=== PATIENT | male | born 1935 | race Caucasian/White ===

== ENCOUNTER 2018-12-14 13:01 | Inpatient (IN) ==
--- NOTE | 2018-12-14 13:12 | Emergency Department Note ---
Disposition Clinical Impression: SBO (small bowel obstruction) Acute renal failure Qualifiers: Acute renal failure type: unspecified Qualified Code(s): N17.9 - Acute kidney failure, unspecified Disposition: Admitted As Inpatient Condition: Good Referrals: NONE,PCP [Primary Care Provider] - Forms: ED Satisfaction Letter, Work/School Release Time of Disposition: 17:37 Abdominal Pain HPI - General Chief Complaint: ED Abdominal Pain Stated Complaint: abd pain, diarrhea Time Seen by Provider: 12/14/18 13:11 Source: patient Mode of arrival: ambulatory Limitations: no limitations Nursing Notes Reviewed: Yes Vital Signs Reviewed: Yes - History of Present Illness HPI Narrative: Patient is an 82-year-old male with past history of bowel resection 2 secondary to obstruction, previous history of diverticulitis, multiple bowel obstructions in 2018. Presenting today due to nausea, vomiting 2, diarrhea 3 days. He states that he started having generalized abdominal distention 3 days ago. He also started having liquid stools 3 days ago. Denies any blood in his stool. He has had 2 episodes of vomiting, once yesterday and once this morning on the nonbloody and nonbilious. He ascribes his abdominal discomfort as a distention type feeling. Denies any dysuria, hematuria, any other fevers, chest pain, shortness of breath. He states that this feels very similar to previous obstructions in the past. He states that he was in the hospital in June 2018, July 2018, August 2018 due to obstructions. He states that he usually requires an NG tube and bowel rest until resolution. He currently rates his abdominal pain is 7 and 10. He says that he does not want any pain medication because that usually uses his GI system down and he would rather" deal with the pain." Denies any current nausea. States his last normal bowel movement was 4 days ago. He was able to hold down a small amount of food today. Pain Scale: 7 - Related Data Allergies Allergy/AdvReac Type Severity Reaction Status Date / Time levofloxacin AdvReac Hives Verified 12/14/18 13:09 All systems ED: reviewed and negative except as stated. Constitutional: Denies: fever Cardiovascular: Denies: chest pain Respiratory: Denies: cough, dyspnea Gastrointestinal: Reports: abdominal pain, nausea, vomiting, diarrhea. Denies: constipation, hematemesis, melena, hematochezia Genitourinary: Denies: urgency, dysuria Neurological: Denies: weakness, numbness, paresthesias Abdominal Pain PMH - Past Medical History Medical history: Reports: hypertension, other Psychiatric history: Reports: no psych history - Social History Smoking status: Never smoker Alcohol use: Reports: none Drug use: Reports: none Physical Exam - General Limitations: no limitations General appearance: alert, in no apparent distress - Head Head exam: atraumatic, normocephalic, normal inspection - Eye Eye exam: Present: normal appearance, PERRL, EOMI - ENT ENT exam: normal exam, normal oropharynx, mucous membranes moist - Neck Neck exam: Present: normal inspection, full ROM, trachea midline - Chest Chest inspection: Present: normal inspection, symmetric chest wall rise - Respiratory Respiratory exam: Present: normal lung sounds bilaterally - Cardiovascular Cardiovascular exam: Present: regular rate, normal rhythm, normal heart sounds - Abdominal Exam Abdominal exam: Present: soft, tenderness (Generalized abdominal tenderness - mild to moderate), distention (Generalized abdominal distention), scar (Midline surgical scar superior and lateral to the umbilicus.). Absent: guarding, Mueller's sign, tenderness at McBurney's Point - Extremities Exam Extremities exam: Present: normal inspection, full ROM. Absent: tenderness, pedal edema - Neurological Exam Neurological exam: Present: alert, oriented X3 - Psychiatric Psychiatric exam: Present: normal affect, normal mood - Skin Skin exam: Present: warm, dry, intact, normal color Course Course Narrative: Due to extensive history of bowel obstruction and history of resection of the bowel, we will proceed with CT abdomen and pelvis. We will also obtain basic blood work, lactic acid, LFTs, lipase. We will give the patient normal saline bolus. Patient has declined any pain or nausea medication at this time. 17:35 CT abdomen and pelvis shows small bowel structuring with the right lower quadrant transition point. I talked with surgery on-call, Dr. Prasad, who has requested NG tube placement, nothing by mouth, fluids. They will act as a consult to the case. Patient also has evidence of new onset acute renal failure. Potassium is within normal limits. Patient denies that he has ever had a history of chronic kidney disease in the past. Consult to nephrology has also been placed. Patient was accepted by hospitalist. Patient continues to refuse any nausea or pain medication at this time. Abdomen/Pelvis CT 12/14/18 13:18 IMPRESSION: Evidence of small bowel obstruction, with a zone of transition in the right lower quadrant. Debris within the left lower lobe airways. That could represent mucous plugging in the setting of bronchitis, but aspiration should also be considered, especially given the gastric distention. D/ / Terrence Redman MD / Terrence Redman MD Interpreting Provider: Terrence Redman MD Vital Signs Temperature 97.6 F 12/14/18 13:04 Pulse Rate 91 12/14/18 13:04 Respiratory Rate 14 12/14/18 13:04 Blood Pressure 97/62 12/14/18 13:04 O2 Sat by Pulse Oximetry 97 12/14/18 13:04 Temperature 97.6 F 12/14/18 13:04 Pulse Rate 92 12/14/18 16:58 Respiratory Rate 16 12/14/18 16:58 Blood Pressure 114/58 12/14/18 16:58 O2 Sat by Pulse Oximetry 94 12/14/18 16:58 Oxygen Delivery Oxygen Delivery Room Air Abdominal Pain - MDM Narrative Medical decision making narrative: Due to extensive history of bowel obstruction and history of resection of the bowel, we will proceed with CT abdomen and pelvis. We will also obtain basic blood work, lactic acid, LFTs, lipase. We will give the patient normal saline bolus. Patient has declined any pain or nausea medication at this time. 17:35 CT abdomen and pelvis shows small bowel structuring with the right lower quadrant transition point. I talked with surgery on-call, Dr. Prasad, who has requested NG tube placement, nothing by mouth, fluids. They will act as a consult to the case. Patient also has evidence of new onset acute renal failure. Potassium is within normal limits. Patient denies that he has ever had a history of chronic kidney disease in the past. Consult to nephrology has also been placed. Patient was accepted by hospitalist. Patient continues to refuse any nausea or pain medication at this time. - Medical Records Medical records reviewed: Yes I reviewed the patient's medical records. - Lab Data Lab results reviewed: Yes I reviewed the patient's lab results. Result diagrams: 12/14/18 13:35 12/14/18 15:00 Lab Results 12/14/18 12/14/18 12/14/18 Range/Units 13:28 13:35 13:35 WBC 11.8 H (4.3-11.1) K/mcL RBC 4.76 (4.19-5.50) M/mcL Hgb 14.6 (12.9-16.9) g/dL Hct 42.0 (37.5-50.1) % MCV 88.2 (83.0-100.0) fL MCH 30.7 (28.0-33.3) pg MCHC 34.8 (31.6-35.5) g/dL RDW 14.6 H (11.5-14.5) % Plt Count 332 (140-400) K/mcL MPV 9.7 (9.4-12.4) fL Immature Gran % 0.3 (0-4) % Seg Neutrophils % 79.9 % Lymphocytes % 11.7 % Monocytes % 6.5 % Eosinophils % 1.3 % Basophils % 0.3 % Neutrophils # 9.4 H (1.6-8.9) K/mcL Lymphocytes # 1.4 (0.6-4.6) K/mcL Monocytes # 0.8 (0.0-1.3) K/mcL Eosinophils # 0.2 (0.0-0.6) K/mcL Basophils # 0.0 (0.0-0.2) K/mcL Sodium 130 L (136-145) mEq/L Potassium 3.5 (3.5-5.1) mEq/L Chloride 95 L (98-107) mEq/L Carbon Dioxide 16 L (23-29) mEq/L BUN 56 H (8-23) mg/dL Creatinine 6.25 H (0.70-1.30) mg/dL Est GFR ( Amer) 10 L (> 60) Est GFR (Non-Af Amer) 9 L (> 60) BUN/Creatinine Ratio 9 (6-26) Glucose 108 H (70-105) mg/dL Calculated Osmolality 286 (280-300) Lactic Acid (0.5-2.2) mmol/L Calcium 10.5 H (8.6-10.3) mg/dL Total Bilirubin 0.7 (0.3-1.0) mg/dL Direct Bilirubin 0.2 (0.0-0.2) mg/dL Indirect Bilirubin 0.5 (0.0-1.2) mg/dL AST 17 (13-39) Units/L ALT 16 (7-52) Units/L Alkaline Phosphatase 51 (34-104) Units/L Serum Total Protein 8.7 (6.4-8.9) g/dL Albumin 4.9 (3.5-5.7) g/dL Globulin 3.8 H (2.4-3.5) g/dL Albumin/Globulin Ratio 1.3 (1.1-2.2) Lipase 51 (11-82) Units/L Urine Color Red A (Yellow) Urine Clarity Turbid A (Clear) Urine pH 5.0 (5.0-8.0) pH Units Ur Specific [place] 1.029 H (1.010-1.025) Urine Protein 30 H (Neg-Trace) mg/dL Urine Glucose (UA) Normal (Normal) mg/dL Urine Ketones Trace H (Negative) mg/dL Urine Blood Negative (Negative) Urine Nitrite Negative (Negative) Urine Bilirubin Large H (Negative) Urine Urobilinogen Normal (Normal) mg/dL Ur Leukocyte Esterase Small H (Negative) Urine Microscopic RBC 30-50 H (0-3) per hpf Urine Microscopic WBC 15-30 H (0-3) per hpf Ur Squamous Epith Cells Many H (None-Few) per lpf Urine Bacteria None Seen (None-Few) per hpf Hyaline Casts Few (None-Few) per lpf Ur Culture Indicated? NO. A (NO) 12/14/18 12/14/18 Range/Units 13:35 15:00 WBC (4.3-11.1) K/mcL RBC (4.19-5.50) M/mcL Hgb (12.9-16.9) g/dL Hct (37.5-50.1) % MCV (83.0-100.0) fL MCH (28.0-33.3) pg MCHC (31.6-35.5) g/dL RDW (11.5-14.5) % Plt Count (140-400) K/mcL MPV (9.4-12.4) fL Immature Gran % (0-4) % Seg Neutrophils % % Lymphocytes % % Monocytes % % Eosinophils % % Basophils % % Neutrophils # (1.6-8.9) K/mcL Lymphocytes # (0.6-4.6) K/mcL Monocytes # (0.0-1.3) K/mcL Eosinophils # (0.0-0.6) K/mcL Basophils # (0.0-0.2) K/mcL Sodium 133 L (136-145) mEq/L Potassium 3.7 (3.5-5.1) mEq/L Chloride 99 (98-107) mEq/L Carbon Dioxide 18 L (23-29) mEq/L BUN 58 H (8-23) mg/dL Creatinine 5.93 H (0.70-1.30) mg/dL Est GFR ( Amer) 11 L (> 60) Est GFR (Non-Af Amer) 9 L (> 60) BUN/Creatinine Ratio 10 (6-26) Glucose 103 (70-105) mg/dL Calculated Osmolality 292 (280-300) Lactic Acid 1.4 (0.5-2.2) mmol/L Calcium 9.7 (8.6-10.3) mg/dL Total Bilirubin (0.3-1.0) mg/dL Direct Bilirubin (0.0-0.2) mg/dL Indirect Bilirubin (0.0-1.2) mg/dL AST (13-39) Units/L ALT (7-52) Units/L Alkaline Phosphatase (34-104) Units/L Serum Total Protein (6.4-8.9) g/dL Albumin (3.5-5.7) g/dL Globulin (2.4-3.5) g/dL Albumin/Globulin Ratio (1.1-2.2) Lipase (11-82) Units/L Urine Color (Yellow) Urine Clarity (Clear) Urine pH (5.0-8.0) pH Units Ur Specific [place] (1.010-1.025) Urine Protein (Neg-Trace) mg/dL Urine Glucose (UA) (Normal) mg/dL Urine Ketones (Negative) mg/dL Urine Blood (Negative) Urine Nitrite (Negative) Urine Bilirubin (Negative) Urine Urobilinogen (Normal) mg/dL Ur Leukocyte Esterase (Negative) Urine Microscopic RBC (0-3) per hpf Urine Microscopic WBC (0-3) per hpf Ur Squamous Epith Cells (None-Few) per lpf Urine Bacteria (None-Few) per hpf Hyaline Casts (None-Few) per lpf Ur Culture Indicated? (NO) - Radiology Data Radiology results reviewed: Yes I reviewed the patient's radiology results. Abdomen/Pelvis CT 12/14/18 13:18 IMPRESSION: Evidence of small bowel obstruction, with a zone of transition in the right lower quadrant. Debris within the left lower lobe airways. That could represent mucous plugging in the setting of bronchitis, but aspiration should also be considered, especially given the gastric distention. D/ / Terrence Redman MD / Terrence Redman MD Interpreting Provider: Terrence Redman MD Mariam - Mariam Situation: Demographics, MOA Background: Presenting Complaint, Relevant PMH, Meds, & Allergies Assessment: Vital Signs, Course and respsone to treatment, Exam Concerns, Patient/Family Expectation, Pertinant Lab Results, Outstanding Labs Recommendation: Barrier(s) to disposition, Recommendation based on pending studies, treatments, or consults S.Katherine.Jeanette Report Given to: Dr. Miguel Becerra Repor Time: 17:35 Attestation Statement - Attestation Attestation: I, Eros Wetzel DO, examined this patient [id number] and my medical decision-making was reviewed with Dr. Best Heredia, Resident Physician. I agree with the documented findings, disposition and treatment plan as described except to the extent set forth below. Please see my progress notes for details.
[2018-12-14] MEDS ORDERED: 0.9 % Sodium Chloride 1,000 ML IVC ONE (13:21)
[2018-12-14 13:42] LABS: Bilirubin,Urine Large (Negative); Blood,Urine Negative (Negative); Clarity,Urine Turbid (Clear); Color,Urine Red (Yellow); Glucose,Urine (UA) Normal (Normal); Ketones,Urine Trace mg/dL (Negative); Leukocyte Esterase,Urine Small (Negative); Nitrite,Urine Negative (Negative); Protein,Urine 30 mg/dL (Neg-Trace); Specific Gravity,Urine 1.029 (1.010-1.025); Urobilinogen,Urine Normal (Normal)
--- NOTE | 2018-12-14 13:44 | Emergency Department Note ---
Disposition Clinical Impression: SBO (small bowel obstruction) Acute renal failure Qualifiers: Acute renal failure type: unspecified Qualified Code(s): N17.9 - Acute kidney failure, unspecified Disposition: Admitted As Inpatient Condition: Fair Referrals: NONE,PCP [Primary Care Provider] - Forms: ED Satisfaction Letter, Work/School Release Time of Disposition: 17:42 General Adult HPI - General Chief complaint: ED Abdominal Pain Stated complaint: abd pain, diarrhea Time Seen by Provider: 12/14/18 13:11 Source: patient Mode of arrival: ambulatory Limitations: no limitations - History of Present Illness Pain Scale: 7 - Related Data Allergies Allergy/AdvReac Type Severity Reaction Status Date / Time levofloxacin AdvReac Hives Verified 12/14/18 13:09 Constitutional: Denies: fever Cardiovascular: Denies: chest pain Respiratory: Denies: cough, dyspnea Gastrointestinal: Reports: abdominal pain, nausea, vomiting, diarrhea. Denies: constipation, hematemesis, melena, hematochezia Genitourinary: Denies: urgency, dysuria Neurological: Denies: weakness, numbness, paresthesias Past Medical History - Past Medical History Medical history: Reports: hypertension, other Psychiatric history: Reports: no psych history - Social History Smoking Status: Never smoker Smokeless Tobacco Status: No Alcohol use: Reports: none Drug use: Reports: none Physical Exam - General Limitations: no limitations General appearance: alert, in no apparent distress Course Vital Signs Temperature 97.6 F 12/14/18 13:04 Pulse Rate 91 12/14/18 13:04 Respiratory Rate 14 12/14/18 13:04 Blood Pressure 97/62 12/14/18 13:04 O2 Sat by Pulse Oximetry 97 12/14/18 13:04 Temperature 97.6 F 12/14/18 13:04 Pulse Rate 92 12/14/18 16:58 Respiratory Rate 16 12/14/18 16:58 Blood Pressure 114/58 12/14/18 16:58 O2 Sat by Pulse Oximetry 94 12/14/18 16:58 Oxygen Delivery Oxygen Delivery Room Air Medical Decision Making - Lab Data Result diagrams: 12/14/18 13:35 12/14/18 15:00 Lab Results 12/14/18 12/14/18 12/14/18 Range/Units 13:28 13:35 13:35 WBC 11.8 H (4.3-11.1) K/mcL RBC 4.76 (4.19-5.50) M/mcL Hgb 14.6 (12.9-16.9) g/dL Hct 42.0 (37.5-50.1) % MCV 88.2 (83.0-100.0) fL MCH 30.7 (28.0-33.3) pg MCHC 34.8 (31.6-35.5) g/dL RDW 14.6 H (11.5-14.5) % Plt Count 332 (140-400) K/mcL MPV 9.7 (9.4-12.4) fL Immature Gran % 0.3 (0-4) % Seg Neutrophils % 79.9 % Lymphocytes % 11.7 % Monocytes % 6.5 % Eosinophils % 1.3 % Basophils % 0.3 % Neutrophils # 9.4 H (1.6-8.9) K/mcL Lymphocytes # 1.4 (0.6-4.6) K/mcL Monocytes # 0.8 (0.0-1.3) K/mcL Eosinophils # 0.2 (0.0-0.6) K/mcL Basophils # 0.0 (0.0-0.2) K/mcL Sodium 130 L (136-145) mEq/L Potassium 3.5 (3.5-5.1) mEq/L Chloride 95 L (98-107) mEq/L Carbon Dioxide 16 L (23-29) mEq/L BUN 56 H (8-23) mg/dL Creatinine 6.25 H (0.70-1.30) mg/dL Est GFR ( Amer) 10 L (> 60) Est GFR (Non-Af Amer) 9 L (> 60) BUN/Creatinine Ratio 9 (6-26) Glucose 108 H (70-105) mg/dL Calculated Osmolality 286 (280-300) Lactic Acid (0.5-2.2) mmol/L Calcium 10.5 H (8.6-10.3) mg/dL Total Bilirubin 0.7 (0.3-1.0) mg/dL Direct Bilirubin 0.2 (0.0-0.2) mg/dL Indirect Bilirubin 0.5 (0.0-1.2) mg/dL AST 17 (13-39) Units/L ALT 16 (7-52) Units/L Alkaline Phosphatase 51 (34-104) Units/L Serum Total Protein 8.7 (6.4-8.9) g/dL Albumin 4.9 (3.5-5.7) g/dL Globulin 3.8 H (2.4-3.5) g/dL Albumin/Globulin Ratio 1.3 (1.1-2.2) Lipase 51 (11-82) Units/L Urine Color Red A (Yellow) Urine Clarity Turbid A (Clear) Urine pH 5.0 (5.0-8.0) pH Units Ur Specific [place] 1.029 H (1.010-1.025) Urine Protein 30 H (Neg-Trace) mg/dL Urine Glucose (UA) Normal (Normal) mg/dL Urine Ketones Trace H (Negative) mg/dL Urine Blood Negative (Negative) Urine Nitrite Negative (Negative) Urine Bilirubin Large H (Negative) Urine Urobilinogen Normal (Normal) mg/dL Ur Leukocyte Esterase Small H (Negative) Urine Microscopic RBC 30-50 H (0-3) per hpf Urine Microscopic WBC 15-30 H (0-3) per hpf Ur Squamous Epith Cells Many H (None-Few) per lpf Urine Bacteria None Seen (None-Few) per hpf Hyaline Casts Few (None-Few) per lpf Ur Culture Indicated? NO. A (NO) 12/14/18 12/14/18 Range/Units 13:35 15:00 WBC (4.3-11.1) K/mcL RBC (4.19-5.50) M/mcL Hgb (12.9-16.9) g/dL Hct (37.5-50.1) % MCV (83.0-100.0) fL MCH (28.0-33.3) pg MCHC (31.6-35.5) g/dL RDW (11.5-14.5) % Plt Count (140-400) K/mcL MPV (9.4-12.4) fL Immature Gran % (0-4) % Seg Neutrophils % % Lymphocytes % % Monocytes % % Eosinophils % % Basophils % % Neutrophils # (1.6-8.9) K/mcL Lymphocytes # (0.6-4.6) K/mcL Monocytes # (0.0-1.3) K/mcL Eosinophils # (0.0-0.6) K/mcL Basophils # (0.0-0.2) K/mcL Sodium 133 L (136-145) mEq/L Potassium 3.7 (3.5-5.1) mEq/L Chloride 99 (98-107) mEq/L Carbon Dioxide 18 L (23-29) mEq/L BUN 58 H (8-23) mg/dL Creatinine 5.93 H (0.70-1.30) mg/dL Est GFR ( Amer) 11 L (> 60) Est GFR (Non-Af Amer) 9 L (> 60) BUN/Creatinine Ratio 10 (6-26) Glucose 103 (70-105) mg/dL Calculated Osmolality 292 (280-300) Lactic Acid 1.4 (0.5-2.2) mmol/L Calcium 9.7 (8.6-10.3) mg/dL Total Bilirubin (0.3-1.0) mg/dL Direct Bilirubin (0.0-0.2) mg/dL Indirect Bilirubin (0.0-1.2) mg/dL AST (13-39) Units/L ALT (7-52) Units/L Alkaline Phosphatase (34-104) Units/L Serum Total Protein (6.4-8.9) g/dL Albumin (3.5-5.7) g/dL Globulin (2.4-3.5) g/dL Albumin/Globulin Ratio (1.1-2.2) Lipase (11-82) Units/L Urine Color (Yellow) Urine Clarity (Clear) Urine pH (5.0-8.0) pH Units Ur Specific [place] (1.010-1.025) Urine Protein (Neg-Trace) mg/dL Urine Glucose (UA) (Normal) mg/dL Urine Ketones (Negative) mg/dL Urine Blood (Negative) Urine Nitrite (Negative) Urine Bilirubin (Negative) Urine Urobilinogen (Normal) mg/dL Ur Leukocyte Esterase (Negative) Urine Microscopic RBC (0-3) per hpf Urine Microscopic WBC (0-3) per hpf Ur Squamous Epith Cells (None-Few) per lpf Urine Bacteria (None-Few) per hpf Hyaline Casts (None-Few) per lpf Ur Culture Indicated? (NO) Attestation Statement - Attestation Attestation: I, Eros Wetzel DO, examined this patient [id number] and my medical decision-making was reviewed with Dr. Best Heredia, Resident Physician. I agree with the documented findings, disposition and treatment plan as described except to the extent set forth below. Please see my progress notes for details. 82-year-old male presents emergency room for evaluation of abdominal discomfort and distention. Patient has a history of bowel obstruction in the past. He said it present similarly one time previously. Currently, he is denying chest pain or shortness of breath. He has had intermittent nausea with no vomiting. Has had diarrhea. He denies any constipation. He has not had any fevers or chills. Has not fallen or injured himself. He has not been ill or traveled outside the country. Vital signs otherwise stable. Patient walked around the emergency department with no distress or complaints. His physical exam is unremarkable. Lungs are clear heart is regular. Abdomen soft nondistended no guarding no rigidity no peritoneal symptoms noted this time. Denies any complaints. Extremities are normal. Patient is neurologically intact. He has no signs of conversational dyspnea or altered mentation. Patient will con trasted scan completed at this time looking for obstruction as well as screening labs. Disposition to be determined. He has required NG tube in the past secondary to decompression of the stomach. Otherwise he is in no distress resting comfortable. Patient denied any requirement of pain medication at this time. Will monitor closely until disposition is determined. See detailed documentation the physical exam, medical intervention, medical decision-making and disposition in the resident physician's note. No critical care applied to the patient's treatment course at this time. 1415 Patient's GFR and creatinine are significantly elevated. He described no specific history of renal insufficiency at this point. Labs will be redrawn to confirm that this is a correct laboratory results in the disposition to be determined. Fluids of article provided. 1545 Patient does have what appears to be acute renal insufficiency. No comparable labs are noted. Patient is been provided with 1 L of fluid will be placed on maintenance fluid 150 mL per hour. Nephrology will be consult that admission process will be established. Patient otherwise clinically stable. 1700 Patient is waiting for admission. Surgical consultation was placed secondary to CT findings are consistent with acute small bowel obstruction. Recommendation from Dr. Beaver reviewed the case and recommended a nasogastric tube being placed. This will be ordered at this time. Patient also has what appears to be acute renal insufficiency with unknown etiology. Patient was provided with fluids here in the emergency department will have consultation for nephrology placed in the inpatient setting. Hospitalist has been patient this time for medical intervention and definitive management. Patient is otherwise clinical stable and in no distress at this point. The hospitalist Dr. Rivera reviewed the case and had no other concerns at this time. Patient will be monitored here in the emergency department until the admission process is completed.
[2018-12-14 13:45] LABS: Bacteria,Urine None Seen per hpf (None-Few); Hyaline Casts,Urine Few per lpf (None-Few); RBC,Urine 30-50 per hpf (0-3); Squamous Epithelial Cell,Urine Many per lpf (None-Few); WBC,Urine 15-30 per hpf (0-3)
[2018-12-14 13:49] LABS: Basophils % 0.3 %; Eosinophils # 0.2 K/mcL (0.0-0.6); Eosinophils % 1.3 %; Hemoglobin 14.6 g/dL (12.9-16.9); Immature Granulocytes % 0.3 % (0-4); Lymphocytes # 1.4 K/mcL (0.6-4.6); Lymphocytes % 11.7 %; Mean Corpuscular HGB Conc 34.8 g/dL (31.6-35.5); Mean Corpuscular Hemoglobin 30.7 pg (28.0-33.3); Mean Corpuscular Volume 88.2 fL (83.0-100.0); Mean Platelet Volume 9.7 fL (9.4-12.4); Monocytes # 0.8 K/mcL (0.0-1.3); Monocytes % 6.5 %; Neutrophils # 9.4 K/mcL (1.6-8.9); Platelet Count 332 K/mcL (140-400); Red Blood Count 4.76 M/mcL (4.19-5.50); Red Cell Distribution Width 14.6 % (11.5-14.5); Segmented Neutrophils % 79.9 %
[2018-12-14 14:08] LABS: Albumin 4.9 g/dL (3.5-5.7); Albumin/Globulin Ratio 1.3 (1.1-2.2); Bilirubin,Direct 0.2 mg/dL (0.0-0.2); Bilirubin,Indirect 0.5 mg/dL (0.0-1.2); Bilirubin,Total 0.7 mg/dL (0.3-1.0); Calcium 10.5 mg/dL (8.6-10.3); Globulin 3.8 g/dL (2.4-3.5); Potassium 3.5 mEq/L (3.5-5.1); Total Protein 8.7 g/dL (6.4-8.9)
[2018-12-14 15:28] LABS: Calcium 9.7 mg/dL (8.6-10.3); Potassium 3.7 mEq/L (3.5-5.1)
[2018-12-14] MEDS ORDERED: Isovue-370 500 ML BOTTLE PO ONE (15:54)
[2018-12-14] MEDS ORDERED: Ondansetron ODT 4 MG TAB.RAPDIS SL PRN (18:10)
[2018-12-14] MEDS ORDERED: Naloxone 0.4 MG/ML INJ IVP PRN (18:10)
--- NOTE | 2018-12-14 18:21 | Internal Med History&Physical ---
<Gamlaiel Beach - Last Filed: 12/14/18 18:18> Date of Encounter: 12/14/18 Time of Encounter: 18:18 Internal Medicine - H&P: HPI Chief complaint: Nausea/vomiting/abdominal pain Admitted From: Emergency Dept Plans for Post Hospital Care: Home History of present illness: Mr. Chawla is a 82 year old male with past medical history of PVCs, hypertension, gout, prostate enlargement, bowel obstruction presents with chief complaint of abdominal pain/nausea/vomiting 3 days. Patient is from [place] visiting her friend. He noticed abdominal distention starting Sunday the continue worsen and he developed generalized abdominal pain. Furthermore today patient had diarrhea and vomiting multiple times. He denied having any blood in the stool or vomit. 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 Since his surgery patient has had 3 bowel obstructions in June, July and August 2018. He states these usually require NG tube and bowel rest. He has not required surgery for bowel obstruction. He reports decreased appetite, oral intake as well as decreased urine production. Past Med Surg Social Fam HX - Past Medical History Medical history: hypertension, other Additional medical history: , Gout, hypertension bowel obstruction, enlarged prostate, hypothyroidism, hyperlipidemia Psychiatric history: no psych history - Past Surgical History Additional surgical history: back sx, kidney stone removal, section of colon removed - Social History Smoking Status: Never smoker Smokeless Tobacco Status: No Alcohol use: none Drug use: none - Family History Father Hx Family Cardiac Disorders: Yes (Congestive heart failure) Internal Medicine - H&P: Meds Allopurinol [Zyloprim] 300 mg PO DAILY 12/14/18 [History] Aspirin [Lo-Dose Aspirin EC] 81 mg PO DAILY 12/14/18 [History] Esomeprazole Magnesium [Nexium] 40 mg PO BID 12/14/18 [History] Finasteride [Proscar] 5 mg PO DAILY 12/14/18 [History] Gemfibrozil [Lopid] 600 mg PO TID 12/14/18 [History] Levothyroxine [Synthroid] 88 mcg PO 0630 12/14/18 [History] Lipase/Protease/Amylase [Viokace 20,880-78,300 Units Tb] 3 each PO TIDWM 12/14/18 [History] Lisinopril [Zestril] 5 mg PO DAILY 12/14/18 [History] Metoprolol Succinate [Toprol Xl] 25 mg PO Q8H 12/14/18 [History] Tamsulosin [Flomax] 0.4 mg PO DAILY 12/14/18 [History] Allergy/AdvReac Type Severity Reaction Status Date / Time levofloxacin AdvReac Hives Verified 12/14/18 13:09 All Systems PM: A 10-system review of systems was performed and is negative for pertinent findings except as documented above in the HPI. Review of systems: Constitutional: Denies fever, chills HEENT: Denies headache, trauma, blurry vision, eye discharge, ear pain, ear discharge neck pain, sore throat, rhinorrhea. Reports sinus pressure Heart: Denies chest pain palpitations, LE edema Lungs: Denies shortness of breath reports cough Abdomen: Reports abdominal pain nausea vomiting diarrhea MSK: Denies back pain, falls, joint pain Kidney: Denies dysuria, hematuria Skin: Denies rash, ulcers Neuro: Denies numbness and tingling Psych: denies anxiety, depression - Constitutional Vitals: Temp Pulse Resp BP Pulse Ox 97.6 F 92 16 114/58 94 12/14/18 13:04 12/14/18 16:58 12/14/18 16:58 12/14/18 16:58 12/14/18 16:58 Exam: General: pleasant, without distress HEENT: Head atraumatic, normocephalic, EOMI, PERRL, absent ear discharge or trauma, Moist Mucous Membranes, uvula midline Neck: nontender to palpation, absent lymphadenopathy, Cardiovascualr: Regular rate and rhythm with no murmur, absent gallops or rubs, absent pedal edema, radial pulses 2 out of 4 Lungs: Clear to auscultation bilaterally, not in respiratory distress Abdomen: Soft diffuse tenderness, distended distant bowel sounds, absent peritoneal signs, absent guarding. Scar from previous abdominal surgery noted, intact Skin: warm and dry, absent rash, absent open wounds and nodules MSK: absent clubbing, cyanosis, joints without swelling Neuro: Cranial nerves II through XII intact, UE and LE sensation equal bilaterally, UE and LEstrength 5/5, alert oriented 3, Psych: good insight and judgment Internal Med - H&P Results - Labs CBC & Chem 7: 12/14/18 13:35 12/14/18 15:00 Labs: Short CBC 12/14/18 Range/Units 13:35 WBC 11.8 H (4.3-11.1) K/mcL Hgb 14.6 (12.9-16.9) g/dL Hct 42.0 (37.5-50.1) % Plt Count 332 (140-400) K/mcL Neutrophils # 9.4 H (1.6-8.9) K/mcL BMP 12/14/18 12/14/18 13:35 15:00 Sodium 130 L 133 L Potassium 3.5 3.7 Chloride 95 L 99 Carbon Dioxide 16 L 18 L BUN 56 H 58 H Creatinine 6.25 H 5.93 H Glucose 108 H 103 Calcium 10.5 H 9.7 Liver Function 12/14/18 Range/Units 13:35 Total Bilirubin 0.7 (0.3-1.0) mg/dL Direct Bilirubin 0.2 (0.0-0.2) mg/dL AST 17 (13-39) Units/L ALT 16 (7-52) Units/L Alkaline Phosphatase 51 (34-104) Units/L Albumin 4.9 (3.5-5.7) g/dL Urine 12/14/18 Range/Units 13:28 Urine Color Red A (Yellow) Urine Clarity Turbid A (Clear) Urine pH 5.0 (5.0-8.0) pH Units Ur Specific [place] 1.029 H (1.010-1.025) Urine Protein 30 H (Neg-Trace) mg/dL Urine Glucose (UA) Normal (Normal) mg/dL - Impressions ITS Impressions Abdomen/Pelvis CT 12/14/18 13:18 IMPRESSION: Evidence of small bowel obstruction, with a zone of transition in the right lower quadrant. Debris within the left lower lobe airways. That could represent mucous plugging in the setting of bronchitis, but aspiration should also be considered, especially given the gastric distention. D/ / Terrence Redman MD / Terrence Redman MD Interpreting Provider: Terrence Redman MD - Assessment and Plan (1) SBO (small bowel obstruction) Current Visit: Yes Status: Acute Assessment and plan: 81-year-old male presents with abdominal distention, pain, nausea, vomiting Patient is a history of small bowel obstructions CT abdomen pelvis shows small bowel obstruction with a transient zone of tra nsition in the right lower quadrant Surgery was consulted by emergency department and recommended NG tube placement. We will start patient on IV fluids, Protonix IV (2) Acute renal failure Current Visit: Yes Status: Acute Assessment and plan: Acute renal failure likely secondary to hypovolemia from nausea vomiting CT abdomen pelvis showed no renal abnormalities, urinary bladder unremarkable Patient received 1 L of normal saline in the emergency department and his serum creatinine improved from 6.25 to 5.93 We will continue IV fluids obtain urinalysis, urine sodium, urine creatinine Nephrology was consulted by emergency department Strict I's and O's Qualifiers: Acute renal failure type: unspecified Qualified Code(s): N17.9 - Acute kidney failure, unspecified (3) Gout Current Visit: Yes Status: Chronic Assessment and plan: Patient has history of gout is on allopurinol will continue once a small bowel obstruction resolves. Qualifiers: Gout site: unspecified site Gout etiology: unspecified cause Chronicity: unspecified Qualified Code(s): M10.9 - Gout, unspecified (4) Hyperlipidemia Current Visit: Yes Status: Chronic Assessment and plan: We will continue home medications once small bowel obstruction resolves Qualifiers: Hyperlipidemia type: pure hypercholesterolemia Qualified Code(s): E78.00 - Pure hypercholesterolemia, unspecified; E78.0 - Pure hypercholesterolemia (5) Hypertension Current Visit: Yes Status: Chronic Assessment and plan: Patient's blood pressure on admission is on the hypotensive side and the systolic 90s Hold home blood pressure medications. Qualifiers: Hypertension type: essential hypertension Qualified Code(s): I10 - Essential (primary) hypertension (6) Hypothyroid Current Visit: Yes Status: Chronic Assessment and plan: Patient is on 88 g of levothyroxine If patient's small bowel obstruction does not resolve the next few days we will start him on IV levothyroxine. Qualifiers: Hypothyroidism type: acquired Qualified Code(s): E03.9 - Hypothyroidism, unspecified (7) GERD (gastroesophageal reflux disease) Current Visit: Yes Status: Chronic Assessment and plan: Pantoprazole IV Qualifiers: Esophagitis presence: esophagitis presence not specified Qualified Code(s): K21.9 - Gastro-esophageal reflux disease without esophagitis (8) DVT prophylaxis Current Visit: Yes Status: Acute Assessment and plan: Heparin subcutaneous (9) Abnormal CT of the abdomen Current Visit: Yes Status: Acute Assessment and plan: Patient CT abdomen pelvis showed debris in the left lower lobe airways which could represent mucous plugging in the setting of bronchitis or aspiration. Currently patient is not short of breath or requiring supplemental oxygen and shows no signs of infection. we will obtain cxr. - Time Spent With Patient Total time spent is greater than 50% in coordination of care (as documented) at patient's floor/unit and/or counseling patient: <Michael Luevano - Last Filed: 12/14/18 18:49> Date of Encounter: 12/14/18 Internal Medicine - H&P: HPI History of present illness: Mr. Chawla is a 82 year old male All Systems PM: A 10-system review of systems was performed and is negative for pertinent findings except as documented above in the HPI. - Constitutional Vitals: Temp Pulse Resp BP Pulse Ox 97.6 F 92 16 114/58 94 12/14/18 13:04 12/14/18 16:58 12/14/18 16:58 12/14/18 16:58 12/14/18 16:58 Internal Med - H&P Results - Labs CBC & Chem 7: 12/14/18 13:35 12/14/18 15:00 Labs: Short CBC 12/14/18 Range/Units 13:35 WBC 11.8 H (4.3-11.1) K/mcL Hgb 14.6 (12.9-16.9) g/dL Hct 42.0 (37.5-50.1) % Plt Count 332 (140-400) K/mcL Neutrophils # 9.4 H (1.6-8.9) K/mcL BMP 12/14/18 12/14/18 13:35 15:00 Sodium 130 L 133 L Potassium 3.5 3.7 Chloride 95 L 99 Carbon Dioxide 16 L 18 L BUN 56 H 58 H Creatinine 6.25 H 5.93 H Glucose 108 H 103 Calcium 10.5 H 9.7 Liver Function 12/14/18 Range/Units 13:35 Total Bilirubin 0.7 (0.3-1.0) mg/dL Direct Bilirubin 0.2 (0.0-0.2) mg/dL AST 17 (13-39) Units/L ALT 16 (7-52) Units/L Alkaline Phosphatase 51 (34-104) Units/L Albumin 4.9 (3.5-5.7) g/dL Urine 12/14/18 Range/Units 13:28 Urine Color Red A (Yellow) Urine Clarity Turbid A (Clear) Urine pH 5.0 (5.0-8.0) pH Units Ur Specific [place] 1.029 H (1.010-1.025) Urine Protein 30 H (Neg-Trace) mg/dL Urine Glucose (UA) Normal (Normal) mg/dL - Impressions ITS Impressions Abdomen/Pelvis CT 12/14/18 13:18 IMPRESSION: Evidence of small bowel obstruction, with a zone of transition in the right lower quadrant. Debris within the left lower lobe airways. That could represent mucous plugging in the setting of bronchitis, but aspiration should also be considered, especially given the gastric distention. D/ / Terrence Redman MD / Terrence Redman MD Interpreting Provider: Terrence Redman MD - Time Spent With Patient Total time spent is greater than 50% in coordination of care (as documented) at patient's floor/unit and/or counseling patient: - Attending Attestation I have seen and independently assessed this patient and I agree with plan as documented above Plan Acute small bowel obstruction. NPO, IV fluids, Surgery consulted and recs appreciated Acute renal failure. Unclear baseline. IV fluids. Nephrology consult
[2018-12-14 21:48] LABS: Bilirubin,Urine Small (Negative); Blood,Urine Small (Negative); Clarity,Urine Cloudy (Clear); Color,Urine Yellow (Yellow); Glucose,Urine (UA) Normal (Normal); Ketones,Urine Negative (Negative); Leukocyte Esterase,Urine Negative (Negative); Nitrite,Urine Negative (Negative); PH,Urine 5.5 pH Units (5.0-8.0); Protein,Urine 100 mg/dL (Neg-Trace); Specific Gravity,Urine 1.019 (1.010-1.025); Urobilinogen,Urine Normal (Normal)
[2018-12-14 21:50] LABS: Bacteria,Urine None Seen per hpf (None-Few); Hyaline Casts,Urine None Seen per lpf (None-Few); Squamous Epithelial Cell,Urine Moderate per lpf (None-Few); WBC,Urine 0-3 per hpf (0-3)
[2018-12-14] MEDS: Ringers Solution, Lactated 1,000 ML IVC SCH (22:50)
[2018-12-14] MEDS: Pantoprazole 40 MG VIAL IVP SCH (23:00)
[2018-12-15 02:36] LABS: Basophils % 0.4 %; Eosinophils # 0.1 K/mcL (0.0-0.6); Eosinophils % 1.3 %; Hematocrit 35.7 % (37.5-50.1); Immature Granulocytes % 0.7 % (0-4); Lymphocytes # 1.3 K/mcL (0.6-4.6); Lymphocytes % 14.3 %; Mean Corpuscular Hemoglobin 30.8 pg (28.0-33.3); Mean Corpuscular Volume 87.9 fL (83.0-100.0); Mean Platelet Volume 9.8 fL (9.4-12.4); Monocytes # 0.8 K/mcL (0.0-1.3); Monocytes % 8.4 %; Neutrophils # 6.8 K/mcL (1.6-8.9); Platelet Count 241 K/mcL (140-400); Red Blood Count 4.06 M/mcL (4.19-5.50); Red Cell Distribution Width 14.2 % (11.5-14.5); Segmented Neutrophils % 74.9 %
[2018-12-15 02:37] LABS: Hemoglobin 12.5 g/dL (12.9-16.9)
[2018-12-15 02:56] LABS: Calcium 9.5 mg/dL (8.6-10.3); Magnesium 1.4 mg/dL (1.6-2.6); Potassium 3.2 mEq/L (3.5-5.1)
[2018-12-15] MEDS: *HR* Heparin 5,000 UNIT/ML VIAL SQ SCH ×2 (06:37→17:22)
--- NOTE | 2018-12-15 08:07 | Internal Med Progress Note ---
<Gamaliel Beach - Last Filed: 12/15/18 13:54> Hospitalist Progress Note - Encounter Date of Encounter: 12/15/18 Time of Encounter: 10:00 - Subjective Interval History: no acute events overnight. Patient had multiple bowel movements overnight including diarrhea. This morning his surgery clamped NG tube and patient is on clear liquid diet. - Exam Vitals: Temp Pulse Resp BP Pulse Ox 99.3 F 73 16 97/60 97 12/15/18 04:38 12/15/18 04:38 12/15/18 04:38 12/15/18 04:38 12/15/18 04:38 Exam: General: pleasant, without distress Cardiovascualr: Regular rate and rhythm with no murmur, absent gallops or rubs, absent pedal edema, radial pulses 2 out of 4 Lungs: Clear to auscultation bilaterally, not in respiratory distress Abdomen: Soft diffuse tenderness decreased from yesterday, distended but less than yesterday, distant bowel sounds, absent peritoneal signs, absent guarding. Scar from previous abdominal surgery noted, intact Skin: warm and dry, absent rash, absent open wounds and nodules MSK: absent clubbing, cyanosis, joints without swelling Neuro: Cranial nerves II through XII intact, UE and LE sensation equal jethro aterally, UE and LEstrength 5/5, alert oriented 3, Psych: good insight and judgment - Assessment and Plan (1) SBO (small bowel obstruction) Current Visit: Yes Status: Acute Assessment and Plan: Appreciate surgery recommendations. Patient's NG tube clamping he is unclear liquids as he had multiple bowel movements overnight. Continue IV fluids, Zofran for nausea. Replacing potassium, magnesium. (2) Acute renal failure Current Visit: Yes Status: Acute Assessment and Plan: Prerenal Improving with IV fluids. Appreciate nephrology recommendations (3) Gout Current Visit: Yes Status: Chronic Assessment and Plan: We will restart home medications once NG tube is out. (4) Hyperlipidemia Current Visit: Yes Status: Chronic Assessment and Plan: we will continue home medications once small bowel obstruction resolves (5) Hypertension Current Visit: Yes Status: Chronic Assessment and Plan: Patient's blood pressure on admission is on the hypotensive side and the systolic 90s Hold home blood pressure medications. (6) Hypothyroid Current Visit: Yes Status: Chronic Assessment and Plan: Patient is on 88 g of levothyroxine If patient's small bowel obstruction does not resolve the next few days we will start him on IV levothyroxine. (7) GERD (gastroesophageal reflux disease) Current Visit: Yes Status: Chronic Assessment and Plan: Protonix IV (8) DVT prophylaxis Current Visit: Yes Status: Acute Assessment and Plan: Heparin subcutaneous (9) Abnormal CT of the abdomen Current Visit: Yes Status: Acute Assessment and Plan: Chest x-ray within normal limits. Patient surface status is normal. Not requiring oxygenation and does not have cough or sputum production. - Time Spent with Patient Total time spent is greater than 50% in coordination of care (as documented) at patient's floor/unit and/or counseling patient: Internal Medicine: Result - Labs CBC & Chem 7: 12/15/18 02:19 12/15/18 02:19 Labs: Short CBC 12/14/18 12/15/18 Range/Units 13:35 02:19 WBC 11.8 H 9.0 (4.3-11.1) K/mcL Hgb 14.6 12.5 L D (12.9-16.9) g/dL Hct 42.0 35.7 L (37.5-50.1) % Plt Count 332 241 (140-400) K/mcL Neutrophils # 9.4 H 6.8 (1.6-8.9) K/mcL BMP 12/14/18 12/14/18 12/15/18 13:35 15:00 02:19 Sodium 130 L 133 L 133 L Potassium 3.5 3.7 3.2 L Chloride 95 L 99 101 Carbon Dioxide 16 L 18 L 15 L BUN 56 H 58 H 62 H Creatinine 6.25 H 5.93 H 3.82 H Glucose 108 H 103 88 Calcium 10.5 H 9.7 9.5 Liver Function 12/14/18 Range/Units 13:35 Total Bilirubin 0.7 (0.3-1.0) mg/dL Direct Bilirubin 0.2 (0.0-0.2) mg/dL AST 17 (13-39) Units/L ALT 16 (7-52) Units/L Alkaline Phosphatase 51 (34-104) Units/L Albumin 4.9 (3.5-5.7) g/dL Urine 12/14/18 12/14/18 Range/Units 13:28 21:27 Urine Color Red A Yellow (Yellow) Urine Clarity Turbid A Cloudy A (Clear) Urine pH 5.0 5.5 (5.0-8.0) pH Units Ur Specific [place] 1.029 H 1.019 (1.010-1.025) Urine Protein 30 H 100 H (Neg-Trace) mg/dL Urine Glucose (UA) Normal Normal (Normal) mg/dL - Impressions Impressions Abdomen/Pelvis CT 12/14/18 13:18 IMPRESSION: Evidence of small bowel obstruction, with a zone of transition in the right lower quadrant. Debris within the left lower lobe airways. That could represent mucous plugging in the setting of bronchitis, but aspiration should also be considered, especially given the gastric distention. D/ / Terrence Redman MD / Terrence Redman MD Interpreting Provider: Terrence Redman MD Chest X-Ray 12/14/18 18:32 IMPRESSION: No acute findings D/ / Jesica Strickland MD / Jesica Strickland MD Interpreting Provider: Jesica Strickland MD Consult Discharge Plan - Plan Referrals: NONE,PCP [Primary Care Provider] - <Michael Luevano - Last Filed: 12/15/18 14:58> Hospitalist Progress Note - Encounter Date of Encounter: 12/15/18 - Exam Vitals: Temp Pulse Resp BP Pulse Ox 98.2 F 98 16 105/62 95 12/15/18 10:38 12/15/18 10:38 12/15/18 10:38 12/15/18 10:38 12/15/18 10:38 - Time Spent with Patient Total time spent is greater than 50% in coordination of care (as documented) at patient's floor/unit and/or counseling patient: Internal Medicine: Result - Labs CBC & Chem 7: 12/15/18 02:19 12/15/18 02:19 Labs: Short CBC 12/15/18 Range/Units 02:19 WBC 9.0 (4.3-11.1) K/mcL Hgb 12.5 L D (12.9-16.9) g/dL Hct 35.7 L (37.5-50.1) % Plt Count 241 (140-400) K/mcL Neutrophils # 6.8 (1.6-8.9) K/mcL BMP 12/14/18 12/15/18 15:00 02:19 Sodium 133 L 133 L Potassium 3.7 3.2 L Chloride 99 101 Carbon Dioxide 18 L 15 L BUN 58 H 62 H Creatinine 5.93 H 3.82 H Glucose 103 88 Calcium 9.7 9.5 Urine 12/14/18 Range/Units 21:27 Urine Color Yellow (Yellow) Urine Clarity Cloudy A (Clear) Urine pH 5.5 (5.0-8.0) pH Units Ur Specific [place] 1.019 (1.010-1.025) Urine Protein 100 H (Neg-Trace) mg/dL Urine Glucose (UA) Normal (Normal) mg/dL - Impressions Impressions Abdomen/Pelvis CT 12/14/18 13:18 IMPRESSION: Evidence of small bowel obstruction, with a zone of transition in the right lower quadrant. Debris within the left lower lobe airways. That could represent mucous plugging in the setting of bronchitis, but aspiration should also be considered, especially given the gastric distention. D/ / Terrence Redman MD / Terrence Redman MD Interpreting Provider: Terrence Redman MD Chest X-Ray 12/14/18 18:32 IMPRESSION: No acute findings D/ / Jesica Strickland MD / Jesica Strickland MD Interpreting Provider: Jesica Strickland MD - Attending Attestation I have seen and independently assessed this patient and I agree with plan as documented above Plan Acute small bowel obstruction. NPO, IV fluids, Surgery consulted and recs appreciated. Advance diet to clears today and monitor Acute renal failure. Unclear baseline. IV fluids. Nephrology consult <Gamaliel Beach - Last Filed: 12/15/18 13:54> (2) Acute renal failure Qualifiers: Acute renal failure type: unspecified Qualified Code(s): N17.9 - Acute kidney failure, unspecified (3) Gout Qualifiers: Gout site: unspecified site Gout etiology: unspecified cause Chronicity: unspecified Qualified Code(s): M10.9 - Gout, unspecified (4) Hyperlipidemia Qualifiers: Hyperlipidemia type: pure hypercholesterolemia Qualified Code(s): E78.00 - Pure hypercholesterolemia, unspecified; E78.0 - Pure hypercholesterolemia (5) Hypertension Qualifiers: Hypertension type: essential hypertension Qualified Code(s): I10 - Essential (primary) hypertension (6) Hypothyroid Qualifiers: Hypothyroidism type: acquired Qualified Code(s): E03.9 - Hypothyroidism, unspecified (7) GERD (gastroesophageal reflux disease) Qualifiers: Esophagitis presence: esophagitis presence not specified Qualified Code(s): K21.9 - Gastro-esophageal reflux disease without esophagitis
--- NOTE | 2018-12-15 08:44 | AcuteCare Surgery Consult Note ---
Date of Encounter: 12/15/18 Time of Encounter: 07:00 Assessment and Plan (1) SBO (small bowel obstruction) Current Visit: Yes Status: Acute NPO/NGT/IVF. Pt already responding well to conservative therapy for SBO. Clamp NGT and start clears. If pt tolerates clears will DC NGT and advance diet as tolerated. If nausea and/or vomiting develops then will place NGT back to LIWS and obtain gastrograffin SB series in am. Thank you for letting me participate in this patient's care. (2) Acute renal failure Current Visit: Yes Status: Acute improving with IVF Qualifiers: Acute renal failure type: unspecified Qualified Code(s): N17.9 - Acute kidney failure, unspecified (3) Hypertension Current Visit: Yes Status: Chronic hospitalist managing Qualifiers: Hypertension type: essential hypertension Qualified Code(s): I10 - Essential (primary) hypertension History of Present Illness Consult date: 12/15/18 Reason for consult: other (SBO) History of present illness: This 82 y/o male with known hx of multiple, recurrent SBO. He reports acute onset nausea and vomiting, abdominal distension and pain. He reports previous hx of surgery for bowel obstruction. Currently, pt denies any abdominal pain. NGT in place and clamped. +BM x4 overnight. +flatus Past Med Surg Social Fam HX - Past Medical History Medical history: hypertension, other Additional medical history: , Gout, hypertension bowel obstruction, enlarged pro state, hypothyroidism, hyperlipidemia Psychiatric history: no psych history - Past Surgical History Additional surgical history: back sx, kidney stone removal, section of colon removed - Social History Smoking Status: Never smoker Smokeless Tobacco Status: No Alcohol use: none Drug use: none - Family History Father Hx Family Cardiac Disorders: Yes (Congestive heart failure) Medications and Allergies Allopurinol [Zyloprim] 300 mg PO DAILY 12/14/18 [History] Aspirin [Lo-Dose Aspirin EC] 81 mg PO DAILY 12/14/18 [History] Esomeprazole Magnesium [Nexium] 40 mg PO BID 12/14/18 [History] Finasteride [Proscar] 5 mg PO DAILY 12/14/18 [History] Gemfibrozil [Lopid] 600 mg PO TID 12/14/18 [History] Levothyroxine [Synthroid] 88 mcg PO 0630 12/14/18 [History] Lipase/Protease/Amylase [Viokace 20,880-78,300 Units Tb] 3 each PO TIDWM 12/14/18 [History] Lisinopril [Zestril] 5 mg PO DAILY 12/14/18 [History] Metoprolol Succinate [Toprol Xl] 25 mg PO Q8H 12/14/18 [History] Tamsulosin [Flomax] 0.4 mg PO DAILY 12/14/18 [History] Allergy/AdvReac Type Severity Reaction Status Date / Time levofloxacin AdvReac Hives Verified 12/14/18 13:09 Review of Systems All systems PM: The remainder of the systems were reviewed and are negative - Constitutional as per HPI, no anorexia, no chills, no fatigue, no fever(s), no weight gain, no weight loss - EENT Nose, mouth and throat: dry mouth, no dysphagia, no nasal congestion, no nasal discharge, no sinus pain, no sinus pressure, no sore throat - Cardiovascular no chest pain, no diaphoresis, no dyspnea, no edema - Respiratory no cough, no dyspnea, no wheezing - Gastrointestinal abdominal pain, bloating, constipation, loose stools, nausea, vomiting, no belching, no coffee ground emesis, no diarrhea, no hematemesis - Genitourinary no difficulty urinating, no dysuria, no urinary frequency, no urinary urgency - Musculoskeletal back pain, limited range of motion, neck pain, no joint swelling - Integumentary dry skin, no pruritus, no rash, no wounds, no jaundice - Neurological weakness, no confusion, no dizziness, no focal weakness - Psychiatric no anxiety, no depression - Hematologic/Lymphatic no easy bleeding, no easy bruising General Surgery Exam Initial Vital Signs Temp Pulse Resp BP Pulse Ox 97.6 F 91 14 97/62 97 12/14/18 13:04 12/14/18 13:04 12/14/18 13:04 12/14/18 13:04 12/14/18 13:04 - General physical appearance well developed, well nourished, no distress, no pain - Eyes PERRL, normal ocular movement. negative: icteric - ENT no congestion, dry mucosa. negative: nasal discharge - Neck no masses, no lymphadectomy, no venous distension - Respiratory normal respiratory effort, clear to auscultation - Cardiovascular Cardiovascular exam: Present: RRR. Absent: murmurs - Abdomen Abdomen general surgery: Present: bowel sounds present, soft, non tender, distended. Absent: guarding, rebound - Genitourinary Present: normal penis with no external lesions - Integumentary Integumentary general surgery: Present: warm and dry - Neurologic Present: CN 2-12 grossly intact - Musculoskeletal Present: normal posture - Psychiatric Psychiatric general surgery: Present: A&Ox3, appropriate Exam Initial Vital Signs Temp Pulse Resp BP Pulse Ox 97.6 F 91 14 97/62 97 12/14/18 13:04 12/14/18 13:04 12/14/18 13:04 12/14/18 13:04 12/14/18 13:04 Results - Labs 12/15/18 02:19 12/15/18 02:19 Abnormal lab results RBC 4.06 M/mcL (4.19-5.50) L 12/15/18 02:19 Hgb 12.5 g/dL (12.9-16.9) L D 12/15/18 02:19 Hct 35.7 % (37.5-50.1) L 12/15/18 02:19 Sodium 133 mEq/L (136-145) L 12/15/18 02:19 Potassium 3.2 mEq/L (3.5-5.1) L 12/15/18 02:19 Carbon Dioxide 15 mEq/L (23-29) L 12/15/18 02:19 BUN 62 mg/dL (8-23) H 12/15/18 02:19 Creatinine 3.82 mg/dL (0.70-1.30) H 12/15/18 02:19 Est GFR ( Amer) 19 (> 60) L 12/15/18 02:19 Est GFR (Non-Af Amer) 15 (> 60) L 12/15/18 02:19 Phosphorus 5.0 mg/dL (2.7-4.5) H 12/15/18 02:19 Magnesium 1.4 mg/dL (1.6-2.6) L 12/15/18 02:19 Globulin 3.8 g/dL (2.4-3.5) H 12/14/18 13:35 Urine Clarity Cloudy (Clear) A 12/14/18 21:27 Urine Protein 100 mg/dL (Neg-Trace) H 12/14/18 21:27 Urine Blood Small (Negative) H 12/14/18 21:27 Urine Bilirubin Small (Negative) H 12/14/18 21:27 Urine Microscopic RBC 3-5 per hpf (0-3) H 12/14/18 21:27 Ur Squamous Epith Cells Moderate per lpf (None-Few) H 12/14/18 21:27 Ur Culture Indicated? NO. (NO) A 12/14/18 13:28 Diabetes panel 12/14/18 12/14/18 12/15/18 Range/Units 13:35 15:00 02:19 Sodium 130 L 133 L 133 L (136-145) mEq/L Potassium 3.5 3.7 3.2 L (3.5-5.1) mEq/L Chloride 95 L 99 101 (98-107) mEq/L Carbon Dioxide 16 L 18 L 15 L (23-29) mEq/L BUN 56 H 58 H 62 H (8-23) mg/dL Creatinine 6.25 H 5.93 H 3.82 H (0.70-1.30) mg/dL Glucose 108 H 103 88 (70-105) mg/dL Calcium 10.5 H 9.7 9.5 (8.6-10.3) mg/dL AST 17 (13-39) Units/L ALT 16 (7-52) Units/L Alkaline Phosphatase 51 (34-104) Units/L Albumin 4.9 (3.5-5.7) g/dL Calcium panel 12/14/18 12/14/18 12/15/18 Range/Units 13:35 15:00 02:19 Calcium 10.5 H 9.7 9.5 (8.6-10.3) mg/dL Phosphorus 5.0 H (2.7-4.5) mg/dL Albumin 4.9 (3.5-5.7) g/dL Pituitary panel 12/14/18 12/14/18 12/15/18 Range/Units 13:35 15:00 02:19 Sodium 130 L 133 L 133 L (136-145) mEq/L Potassium 3.5 3.7 3.2 L (3.5-5.1) mEq/L Chloride 95 L 99 101 (98-107) mEq/L Carbon Dioxide 16 L 18 L 15 L (23-29) mEq/L BUN 56 H 58 H 62 H (8-23) mg/dL Creatinine 6.25 H 5.93 H 3.82 H (0.70-1.30) mg/dL Glucose 108 H 103 88 (70-105) mg/dL Calcium 10.5 H 9.7 9.5 (8.6-10.3) mg/dL Adrenal panel 12/14/18 12/14/18 12/15/18 Range/Units 13:35 15:00 02:19 Sodium 130 L 133 L 133 L (136-145) mEq/L Potassium 3.5 3.7 3.2 L (3.5-5.1) mEq/L Chloride 95 L 99 101 (98-107) mEq/L Carbon Dioxide 16 L 18 L 15 L (23-29) mEq/L BUN 56 H 58 H 62 H (8-23) mg/dL Creatinine 6.25 H 5.93 H 3.82 H (0.70-1.30) mg/dL Glucose 108 H 103 88 (70-105) mg/dL Calcium 10.5 H 9.7 9.5 (8.6-10.3) mg/dL Total Bilirubin 0.7 (0.3-1.0) mg/dL AST 17 (13-39) Units/L ALT 16 (7-52) Units/L Alkaline Phosphatase 51 (34-104) Units/L Albumin 4.9 (3.5-5.7) g/dL All other labs normal. - Imaging CT scan - abdomen: image reviewed (+SBO with transition point) CT scan - pelvis: image reviewed Consult Discharge Plan - Plan Referrals: NONE,PCP [Primary Care Provider] -
[2018-12-15] MEDS: Pantoprazole 40 MG VIAL IVP SCH (10:17)
[2018-12-15] MEDS: Sodium Bicarbonate 150 MEQ in D5% in Water 1,000 ML IVC SCH ×2 (10:23→19:18)
[2018-12-15] MEDS: Saline Nasal Spray 44 ML BOTTLE NS PRN ×3 (11:54→17:24)
--- NOTE | 2018-12-15 12:20 | Nephrology Consult Note ---
Date of Encounter: 12/15/18 Time of Encounter: 12:00 Assessment and Plan (1) ANGELO (acute kidney injury) Current Visit: Yes Status: Acute Elevated SCr in the setting of N/V and SBO likely pre-renal Agree with aggressive volume repletion Avoid nephrotoxins if possible No acute indication for [employer] at this time since improving Will obtain US of kidney given history of BPH (2) SBO (small bowel obstruction) Current Visit: Yes Status: Acute Per surgery (3) Hypokalemia Current Visit: Yes Status: Acute Agree with repletion thus far but also needs magnseium repletion bicarb gtt also affects potassium movement intracellular which makes repletion difficult (4) Hypomagnesemia Current Visit: Yes Status: Acute repleted (5) Metabolic acidosis Current Visit: Yes Status: Acute due to ANGELO, agree with bicarb gtt for now History of Present Illness - Reason for Consult Consult date: 12/15/18 Acute Kidney Injury Requesting physician: Best Heredia - History of Present Illness 82 y o male with PMH of HTN, gout, BPH and recurrent bowel obxns admitted with abd. distension, pain with nausea and vomiting of 3 day duration. SCr initially noted at 6.25 improving to 5.93 yesterday and 3.82 today. Renal consulted placed in chart yesterday evening but never called and noted on list this am. No baseline SCr available as pt is from [place] by he denies any prior history of renal disease. He reports decerased po intake for the past several days with nausea and vomiting. No NSAIDs use. Past Med Surg Social Fam HX - Past Medical History Medical history: hypertension, other Additional medical history: , Gout, hypertension bowel obstruction, enlarged prostate, hypothyroidism, hyperlipidemia Psychiatric history: no psych history - Past Surgical History Additional surgical history: back sx, kidney stone removal, section of colon removed - Social History Smoking Status: Never smoker Smokeless Tobacco Status: No Alcohol use: none Drug use: none - Family History Father Hx Family Cardiac Disorders: Yes (Congestive heart failure) Medications and Allergies Allopurinol [Zyloprim] 300 mg PO DAILY 12/14/18 [History] Aspirin [Lo-Dose Aspirin EC] 81 mg PO DAILY 12/14/18 [History] Esomeprazole Magnesium [Nexium] 40 mg PO BID 12/14/18 [History] Finasteride [Proscar] 5 mg PO DAILY 12/14/18 [History] Gemfibrozil [Lopid] 600 mg PO TID 12/14/18 [History] Levothyroxine [Synthroid] 88 mcg PO 0630 12/14/18 [History] Lipase/Protease/Amylase [Viokace 20880-78,300 Units Tb] 3 each PO TIDWM 12/14/18 [History] Lisinopril [Zestril] 5 mg PO DAILY 12/14/18 [History] Metoprolol Succinate [Toprol Xl] 25 mg PO Q8H 12/14/18 [History] Tamsulosin [Flomax] 0.4 mg PO DAILY 12/14/18 [History] Allergy/AdvReac Type Severity Reaction Status Date / Time levofloxacin AdvReac Hives Verified 12/14/18 13:09 Review of Systems All Systems review (narrative): The rest of systems are negative Constitutional: fatigue (admits) Cardiovascular: chest pain (denies), leg edema (denies) Respiratory: dyspnea (denies) Gastrointestinal: abdominal pain (admits), diarrhea (admits), vomiting (admits) Exam - Vital Signs Vital signs: Initial Vital Signs Temp Pulse Resp BP Pulse Ox 97.6 F 91 14 97/62 97 12/14/18 13:04 12/14/18 13:04 12/14/18 13:04 12/14/18 13:04 12/14/18 13:04 Vital Signs - Last 8 Hours Temp Pulse Resp BP Pulse Ox 12/15/18 10:38 98.2 F 98 16 105/62 95 12/15/18 04:38 99.3 F 73 16 97/60 97 Intake and Output 12/14/18 12/15/18 12/15/18 23:59 07:59 15:59 Intake Total 1100 / 1100 Output Total 0 / 0 200 / 200 Balance 0 / 0 900 / 900 Intake: IV Fluids 1100 / 1100 Lactated Ringers 1,000 ML @ 100 1000 / 1000 mls/hr IVC .Q10H DANIELLE Rx#: [id number] Potassium Chloride 10 mEq/100mL 100 / 100 10 meq In 100 ml @ 100 mls/hr IVPB Q1H DANIELLE Rx#:[id number] Output: Urine 0 / 0 200 / 200 Gastric Drainage 0 / 0 0 / 0 Other: Stool Size Large Moderate Small Stool Consistency soft liquid liquid Stool Characteristics Normal for Patient Stool Color Brown Brown Brown Green # Bowel Movements 2 Weight 72.3 kg 72.2 kg Patient Weight 12/15/18 23:59 Weight 72.2 kg - General Appearance General appearance: well-developed, well-nourished (comfortable with NGT) EENT: ATNC, mucous membranes dry Neck: no JVD, supple Respiratory: clear (ant bilat) Cardiology: normal S1, normal S2 Gastrointestinal: tenderness (diffuse, mild), no guarding Integumentary: warm and dry Neurologic: no focal deficit Musculoskeletal: no deformities Psychiatric: mood/affect appropriate Results - Lab Results 12/16/18 04:12 12/16/18 14:47 Most recent lab results Calcium 9.5 mg/dL (8.6-10.3) 12/15/18 02:19 Phosphorus 5.0 mg/dL (2.7-4.5) H 12/15/18 02:19 Magnesium 1.4 mg/dL (1.6-2.6) L 12/15/18 02:19 Urine Creatinine 234 mg/dL 12/14/18 21:27 Urine Sodium 43.0 mEq/L 12/14/18 21:27 Consult Discharge Plan - Plan Referrals: NONE,PCP [Primary Care Provider] -
[2018-12-16 04:33] LABS: Hematocrit 36.5 % (37.5-50.1); Hemoglobin 12.8 g/dL (12.9-16.9); Mean Corpuscular HGB Conc 35.1 g/dL (31.6-35.5); Mean Corpuscular Hemoglobin 30.3 pg (28.0-33.3); Mean Corpuscular Volume 86.5 fL (83.0-100.0); Mean Platelet Volume 9.6 fL (9.4-12.4); Platelet Count 259 K/mcL (140-400); Red Blood Count 4.22 M/mcL (4.19-5.50); Red Cell Distribution Width 13.9 % (11.5-14.5)
[2018-12-16 04:55] LABS: Calcium 9.7 mg/dL (8.6-10.3); Magnesium 1.9 mg/dL (1.6-2.6); Potassium 2.6 mEq/L (3.5-5.1)
[2018-12-16] MEDS: *HR* Heparin 5,000 UNIT/ML VIAL SQ SCH ×2 (05:42→19:03)
[2018-12-16] MEDS: Ringers Solution, Lactated 1,000 ML IVC SCH ×2 (07:33→09:33)
--- NOTE | 2018-12-16 07:53 | Internal Med Progress Note ---
<Gamaliel Beach - Last Filed: 12/16/18 12:59> Hospitalist Progress Note - Encounter Date of Encounter: 12/16/18 Time of Encounter: 09:00 - Subjective Interval History: Patient reports that he has had poor sleep since admission and requests melatonin. Yesterday patient's NG tube was clamped and he had a clear liquid diet. However he states since he started the diet he did have some nausea. Overnight patient was started on intermittent suction and over 1 L of gastric fluid was removed. This morning his NG tube is back to suction and he is going to have a clear liquid diet as per surgery. Furthermore patient has had multiple liquid bowel movements throughout the night. - Exam Vitals: Temp Pulse Resp BP Pulse Ox 98.4 F 95 14 104/58 94 12/16/18 07:10 12/16/18 07:10 12/16/18 07:10 12/16/18 07:10 12/15/18 22:25 Exam: General: pleasant, without distress Cardiovascualr: Regular rate and rhythm with no murmur, absent gallops or rubs, absent pedal edema, radial pulses 2 out of 4 Lungs: Clear to auscultation bilaterally, not in respiratory distress Abdomen: Soft nontender, distended, distant bowel sounds, absent peritoneal signs, absent guarding. Scar from previous abdominal surgery noted, intact. NG tube Skin: warm and dry, absent rash, absent open wounds and nodules MSK: absent clubbing, cyanosis, joints without swelling Neuro: Cranial nerves II through XII intact, UE and LE sensation equal bilaterally, UE and LEstrength 5/5, alert oriented 3, Psych: good insight and judgment - Assessment and Plan (1) SBO (small bowel obstruction) Current Visit: Yes Status: Acute Assessment and Plan: Appreciate surgery recommendations We will continue IV fluids and symptomatic nausea control Patient's NG tube was clamped and he is on clear liquids. (2) Acute renal failure Current Visit: Yes Status: Acute Assessment and Plan: Patient's serum creatinine has improved to 1.55 This is secondary to prerenal etiology. BMP tomorrow morning (3) Gout Current Visit: Yes Status: Chronic Assessment and Plan: We will restart home medications once NG tube is out. (4) Hyperlipidemia Current Visit: Yes Status: Chronic Assessment and Plan: we will continue home medications once small bowel obstruction resolves (5) Hypertension Current Visit: Yes Status: Chronic Assessment and Plan: holding for now BP is controlled. (6) Hypothyroid Current Visit: Yes Status: Chronic Assessment and Plan: start IV levothyroxine (7) GERD (gastroesophageal reflux disease) Current Visit: Yes Status: Chronic Assessment and Plan: Protonix IV (8) DVT prophylaxis Current Visit: Yes Status: Acute Assessment and Plan: Heparin subcutaneous (9) Diarrhea Current Visit: Yes Status: Acute Assessment and Plan: Patient had multiple bouts of diarrhea overnight Unclear etiology Sending stool panel. (10) Hypokalemia Current Visit: Yes Status: Acute Assessment and Plan: Replacing. Repeat potassium. - Time Spent with Patient Total time spent is greater than 50% in coordination of care (as documented) at patient's floor/unit and/or counseling patient: Internal Medicine: Result - Labs CBC & Chem 7: 12/16/18 04:12 12/16/18 04:12 Labs: Short CBC 12/16/18 Range/Units 04:12 WBC 6.7 (4.3-11.1) K/mcL Hgb 12.8 L (12.9-16.9) g/dL Hct 36.5 L (37.5-50.1) % Plt Count 259 (140-400) K/mcL BMP 12/16/18 04:12 Sodium 133 L Potassium 2.6 L Chloride 94 L Carbon Dioxide 26 BUN 53 H Creatinine 1.55 H Glucose 128 H Calcium 9.7 Consult Discharge Plan - Plan Referrals: NONE,PCP [Primary Care Provider] - <Michael Luevano - Last Filed: 12/16/18 15:04> Hospitalist Progress Note - Encounter Date of Encounter: 12/16/18 - Exam Vitals: Temp Pulse Resp BP Pulse Ox 97.9 F 93 16 118/75 95 12/16/18 14:51 12/16/18 14:51 12/16/18 10:30 12/16/18 14:51 12/16/18 14:51 - Assessment and Plan (1) SBO (small bowel obstruction) Current Visit: Yes Status: Acute (2) Abnormal CT of the abdomen Current Visit: Yes Status: Acute - Time Spent with Patient Total time spent is greater than 50% in coordination of care (as documented) at patient's floor/unit and/or counseling patient: Internal Medicine: Result - Labs CBC & Chem 7: 12/16/18 04:12 12/16/18 04:12 Labs: Short CBC 12/16/18 Range/Units 04:12 WBC 6.7 (4.3-11.1) K/mcL Hgb 12.8 L (12.9-16.9) g/dL Hct 36.5 L (37.5-50.1) % Plt Count 259 (140-400) K/mcL BMP 12/16/18 04:12 Sodium 133 L Potassium 2.6 L Chloride 94 L Carbon Dioxide 26 BUN 53 H Creatinine 1.55 H Glucose 128 H Calcium 9.7 - Attending Attestation I have seen and independently assessed this patient and I agree with plan as documented above Plan Acute small bowel obstruction. NPO, IV fluids, Surgery consulted and recs appreciated. Advance diet to clears today and monitor Acute renal failure likely prerenal. IV fluids. Nephrology consult. Creatinine improving Diarrhea. Obtain stool studies <Gamaliel Beach - Last Filed: 12/16/18 12:59> (2) Acute renal failure Qualifiers: Acute renal failure type: unspecified Qualified Code(s): N17.9 - Acute kidney failure, unspecified (3) Gout Qualifiers: Gout site: unspecified site Gout etiology: unspecified cause Chronicity: unspecified Qualified Code(s): M10.9 - Gout, unspecified (4) Hyperlipidemia Qualifiers: Hyperlipidemia type: pure hypercholesterolemia Qualified Code(s): E78.00 - Pure hypercholesterolemia, unspecified; E78.0 - Pure hypercholesterolemia (5) Hypertension Qualifiers: Hypertension type: essential hypertension Qualified Code(s): I10 - Essential (primary) hypertension (6) Hypothyroid Qualifiers: Hypothyroidism type: acquired Qualified Code(s): E03.9 - Hypothyroidism, unspecified (7) GERD (gastroesophageal reflux disease) Qualifiers: Esophagitis presence: esophagitis presence not specified Qualified Code(s): K21.9 - Gastro-esophageal reflux disease without esophagitis (9) Diarrhea Qualifiers: Diarrhea type: unspecified type Qualified Code(s): R19.7 - Diarrhea, unspecified
[2018-12-16] MEDS ORDERED: Potassium Chloride Elixir 20 MEQ/15 ML UDC PO SCH (08:00)
[2018-12-16] MEDS ORDERED: Potassium Chloride 40 MEQ, Lidocaine 1% 2 ML in D5% in Water 500 ML IVPB ONE (08:14)
--- NOTE | 2018-12-16 08:14 | AcuteCareSurgery Progress Note ---
<HiralJohn Srikanth - Last Filed: 12/16/18 08:11> Date of Encounter: 12/16/18 Time of Encounter: 07:20 - Assessment and Plan (1) SBO (small bowel obstruction) Current Visit: Yes Status: Acute -CT abd/plv 12/14/18: Evidence of SBO with transition zone within the ileum in RLQ -Discomfort, distention and nausea improving with conservative management -NGT clamped overnight and started to become symptomatic and was returned to suction briefly with bilious return -NGT clamped again this morning without new complaints -Continues to have BM's -Electrolyte abnormalities being repleted by primary service -Will continue clears today and if remains asymptomatic will dc NGT -If continues to improve with current conservative management a surgical i ntervention will be unlikely (2) Abnormal CT of the abdomen Current Visit: Yes Status: Acute -As above Subjective Narrative: Feeling better. Has no new complaints today. Had to NG hooked back to suction once overnight after having nausea which had bilious return. NG clamped again now and denies any additional abdominal pain, N/V. Had BM this morning and tolerating clears today. Objective Vital Signs - Last 8 Hours Temp Pulse Resp BP 12/16/18 07:10 98.4 F 95 14 104/58 Intake and Output 12/15/18 12/16/18 12/16/18 23:59 07:59 15:59 Intake Total 1270 / 1270 1150 / 1150 Output Total 1100 / 1100 200 / 200 Balance 170 / 170 950 / 950 Intake: IV Fluids 1150 / 1150 1150 / 1150 Sodium Bicarbonate 150 MEQ In 1150 / 1150 1150 / 1150 Dextrose 5% 1,000 ML @ 150 mls/ hr IVC .Q7H40M [facility] Rx#: [id number] Oral 120 / 120 Output: Gastric Tube Lavage Amount 1100 / 1100 Left Nare 1100 / 1100 Gastric Drainage 200 / 200 Other: Meal Dinner Stool Size Moderate Stool Consistency liquid Stool Color Brown Green # Voids 1 # Bowel Movements 1 - General physical appearance well developed, well nourished, no distress - Eyes normal ocular movement - ENT dry mucosa - Neck Neck exam: trachea midline - Respiratory normal expansion, normal respiratory effort, clear to auscultation - Cardiovascular Cardiovascular exam: Present: RRR. Absent: bradycardia, tachycardia, irregular rhythm, murmurs, clicks, rubs, gallop, distant heart sounds, JVD - Abdomen Abdomen: Present: bowel sounds present, soft, distended (mild), tender (minimally ). Absent: organomegaly, masses, guarding, rebound, rigid, peritoneal - Integumentary no rash - Neurologic CN 2-12 grossly intact, normal coordination - Psychiatric oriented to time, oriented to person, oriented to place, speech is normal - Labs 12/16/18 04:12 12/16/18 04:12 Diabetes panel 12/16/18 Range/Units 04:12 Sodium 133 L (136-145) mEq/L Potassium 2.6 L (3.5-5.1) mEq/L Chloride 94 L (98-107) mEq/L Carbon Dioxide 26 (23-29) mEq/L BUN 53 H (8-23) mg/dL Creatinine 1.55 H (0.70-1.30) mg/dL Glucose 128 H (70-105) mg/dL Calcium 9.7 (8.6-10.3) mg/dL Calcium panel 12/16/18 Range/Units 04:12 Calcium 9.7 (8.6-10.3) mg/dL Pituitary panel 12/16/18 Range/Units 04:12 Sodium 133 L (136-145) mEq/L Potassium 2.6 L (3.5-5.1) mEq/L Chloride 94 L (98-107) mEq/L Carbon Dioxide 26 (23-29) mEq/L BUN 53 H (8-23) mg/dL Creatinine 1.55 H (0.70-1.30) mg/dL Glucose 128 H (70-105) mg/dL Calcium 9.7 (8.6-10.3) mg/dL Adrenal panel 12/16/18 Range/Units 04:12 Sodium 133 L (136-145) mEq/L Potassium 2.6 L (3.5-5.1) mEq/L Chloride 94 L (98-107) mEq/L Carbon Dioxide 26 (23-29) mEq/L BUN 53 H (8-23) mg/dL Creatinine 1.55 H (0.70-1.30) mg/dL Glucose 128 H (70-105) mg/dL Calcium 9.7 (8.6-10.3) mg/dL Consult Discharge Plan - Plan Referrals: NONE,PCP [Primary Care Provider] - <Misael Greene - Last Filed: 12/16/18 08:44> Date of Encounter: 12/16/18 Objective Vital Signs - Last 8 Hours Temp Pulse Resp BP 12/16/18 07:10 98.4 F 95 14 104/58 Intake and Output 12/15/18 12/16/18 12/16/18 23:59 07:59 15:59 Intake Total 1270 / 1270 1150 / 1150 Output Total 1100 / 1100 200 / 200 Balance 170 / 170 950 / 950 Intake: IV Fluids 1150 / 1150 1150 / 1150 Sodium Bicarbonate 150 MEQ In 1150 / 1150 1150 / 1150 Dextrose 5% 1,000 ML @ 150 mls/ hr IVC .Q7H40M [facility] Rx#: [id number] Oral 120 / 120 Output: Gastric Tube Lavage Amount 1100 / 1100 Left Nare 1100 / 1100 Gastric Drainage 200 / 200 Other: Meal Dinner Stool Size Moderate Stool Consistency liquid Stool Color Brown Green # Voids 1 # Bowel Movements 1 - Labs 12/16/18 04:12 12/16/18 04:12 Diabetes panel 12/16/18 Range/Units 04:12 Sodium 133 L (136-145) mEq/L Potassium 2.6 L (3.5-5.1) mEq/L Chloride 94 L (98-107) mEq/L Carbon Dioxide 26 (23-29) mEq/L BUN 53 H (8-23) mg/dL Creatinine 1.55 H (0.70-1.30) mg/dL Glucose 128 H (70-105) mg/dL Calcium 9.7 (8.6-10.3) mg/dL Calcium panel 12/16/18 Range/Units 04:12 Calcium 9.7 (8.6-10.3) mg/dL Pituitary panel 12/16/18 Range/Units 04:12 Sodium 133 L (136-145) mEq/L Potassium 2.6 L (3.5-5.1) mEq/L Chloride 94 L (98-107) mEq/L Carbon Dioxide 26 (23-29) mEq/L BUN 53 H (8-23) mg/dL Creatinine 1.55 H (0.70-1.30) mg/dL Glucose 128 H (70-105) mg/dL Calcium 9.7 (8.6-10.3) mg/dL Adrenal panel 12/16/18 Range/Units 04:12 Sodium 133 L (136-145) mEq/L Potassium 2.6 L (3.5-5.1) mEq/L Chloride 94 L (98-107) mEq/L Carbon Dioxide 26 (23-29) mEq/L BUN 53 H (8-23) mg/dL Creatinine 1.55 H (0.70-1.30) mg/dL Glucose 128 H (70-105) mg/dL Calcium 9.7 (8.6-10.3) mg/dL - Attending Attestation I examined this patient and my medical decision-making was reviewed with the Resident Physician. I agree with the documented findings, disposition and treatment plan as described except to the extent set forth below. The patient is seen and evaluated on morning rounds with the acute care surgery team. The patient feels very well and is sitting comfortably in bed. His nasogastric tube is clamped. He would prefer a clear liquid diet. Trial prior to removal of the nasogastric tube. His abdomen is soft he has normal bowel sounds and had a bowel movement this morning. I anticipate the nasogastric tube will come out later today. Misael Greene MD FACS
[2018-12-16] MEDS: Pantoprazole 40 MG VIAL IVP SCH (09:34)
[2018-12-16] MEDS ORDERED: Melatonin 3 MG TABLET PO PRN (12:10)
[2018-12-16 17:32] LABS: Adenovirus F 40/41 PCR Not detected (Not detect); Astrovirus PCR Not detected (Not detect); C.difficile Toxin A/B Gene PCR Not detected (Not detect); Campylobacter by PCR Not detected (Not detect); Cryptosporidium by PCR Not detected (Not detect); Cyclospora cayetanensis PCR Not detected (Not detect); E. coli O157 by PCR Not detected (Not detect); Entamoeba histolytica PCR Not detected (Not detect); Enteroaggregative E.coli(EAEC) Not detected (Not detect); Enteropathogenic E.coli(EPEC) Not detected (Not detect); Enterotoxigenic E.coli (ETEC) Not detected (Not detect); Giardia lamblia PCR Not detected (Not detect); Norovirus GI/GII PCR Not detected (Not detect); Plesiomonas shigelloides PCR Not detected (Not detect); Rotavirus A PCR Not detected (Not detect); Salmonella PCR Not detected (Not detect); Sapovirus PCR Not detected (Not detect); Shig/EnteroinvasiveE coli EIEC Not detected (Not detect); Shigalike tox-prod E coli STEC Not detected (Not detect); Vibrio PCR Not detected (Not detect); Vibrio cholerae PCR Not detected (Not detect); Yersinia enterocolitica PCR Not detected (Not detect)
--- NOTE | 2018-12-16 22:33 | Nephrology Progress Note ---
Date of Encounter: 12/16/18 Time of Encounter: 12:00 - Assessment and Plan (1) ANGELO (acute kidney injury) Current Visit: Yes Status: Acute SCr drastically improved at 1.55, GFR 43 UOP noted at 1300c in the past 24hrs which is pretty good Continue IVF for now till able to advance diet but NS without bicarb better Continue to avoid nephrotoxins if possible Will signoff, please reconsult pnr. Pt will followup with pcp in [place] with labs (2) SBO (small bowel obstruction) Current Visit: Yes Status: Acute Per surgery (3) Hypokalemia Current Visit: Yes Status: Acute potassium noted very low at 2.6, aggressive repletion needed (4) Hypomagnesemia Current Visit: Yes Status: Acute resolved after repletion (5) Metabolic acidosis Current Visit: Yes Status: Acute resolved, can stopp bicarb gtt Subjective Interval history: Pt seen and examined feeling better with less abdominal discomfort Objective - Vital Signs Vital signs: Vital Signs Temp Pulse Resp BP Pulse Ox 12/16/18 21:19 99.0 F 92 16 111/70 95 12/16/18 14:51 97.9 F 93 16 118/75 95 12/16/18 10:30 98.1 F 84 16 102/61 93 12/16/18 07:10 98.4 F 95 14 104/58 Intake and Output 12/16/18 12/16/18 12/16/18 07:59 15:59 23:59 Intake Total 1150 / 1150 960 / 960 Output Total 200 / 200 1 / 1 Balance 950 / 950 959 / 959 Intake: IV Fluids 1150 / 1150 Sodium Bicarbonate 150 MEQ In 1150 / 1150 Dextrose 5% 1,000 ML @ 150 mls/ hr IVC .Q7H40M [facility] Rx#: [id number] Oral 960 / 960 Output: Urine 1 / 1 Gastric Drainage 200 / 200 0 / 0 Other: Meal Lunch Stool Size Moderate Moderate Stool Consistency liquid liquid Stool Color Brown Brown Green # Voids 1 # Bowel Movements 1 0 - General Appearance General appearance: Present: well-developed, well-nourished EENT: Present: ATNC, mucous membranes dry Additional Comments: with NGT Neck: Present: no JVD, supple Respiratory: Present: clear Cardiology: Present: no edema, normal S1, normal S2 Gastrointestinal: Present: no tenderness, no guarding Integumentary: Present: warm and dry Neurologic: Present: no focal deficit Musculoskeletal: Present: no deformities Psychiatric: Present: mood/affect appropriate - Lab 12/16/18 04:12 12/16/18 14:47 Most recent lab results Calcium 9.7 mg/dL (8.6-10.3) 12/16/18 04:12 Phosphorus 5.0 mg/dL (2.7-4.5) H 12/15/18 02:19 Magnesium 1.9 mg/dL (1.6-2.6) 12/16/18 04:12 Urine Creatinine 234 mg/dL 12/14/18 21:27 Urine Sodium 43.0 mEq/L 12/14/18 21:27 Consult Discharge Plan - Plan Referrals: NONE,PCP [Primary Care Provider] -
[2018-12-17] MEDS ORDERED: Chloraseptic Spray 177 ML BOTTLE MM PRN (01:14)
[2018-12-17] MEDS: *HR* Heparin 5,000 UNIT/ML VIAL SQ SCH ×2 (05:19→17:47)
[2018-12-17 05:44] LABS: Hematocrit 34.1 % (37.5-50.1); Hemoglobin 11.8 g/dL (12.9-16.9); Mean Corpuscular HGB Conc 34.6 g/dL (31.6-35.5); Mean Corpuscular Hemoglobin 30.5 pg (28.0-33.3); Mean Corpuscular Volume 88.1 fL (83.0-100.0); Mean Platelet Volume 10.2 fL (9.4-12.4); Platelet Count 255 K/mcL (140-400); Red Blood Count 3.87 M/mcL (4.19-5.50); Red Cell Distribution Width 14.1 % (11.5-14.5)
[2018-12-17 06:12] LABS: BUN/Creatinine Ratio 33 (6-26); Blood Urea Nitrogen 31 mg/dL (8-23); Calcium 9.3 mg/dL (8.6-10.3); Carbon Dioxide 20 mEq/L (23-29); Chloride 102 mEq/L (98-107); Glucose 104 mg/dL (70-105); Magnesium 1.8 mg/dL (1.6-2.6); Osmolality,Calculated 283 (280-300); Potassium 3.6 mEq/L (3.5-5.1); Sodium 133 mEq/L (136-145); eGFR For Non-African Americans > 60 (> 60)
[2018-12-17] MEDS: Ringers Solution, Lactated 1,000 ML IVC SCH ×2 (07:18→09:26)
[2018-12-17] MEDS: Pantoprazole 40 MG VIAL IVP SCH (07:55)
--- NOTE | 2018-12-17 08:04 | AcuteCareSurgery Progress Note ---
<John Blackman - Last Filed: 12/17/18 08:02> Date of Encounter: 12/17/18 Time of Encounter: 07:05 - Assessment and Plan (1) SBO (small bowel obstruction) Current Visit: Yes Status: Acute -CT abd/plv 12/14/18: Evidence of SBO with transition zone within the ileum in RLQ -Discomfort, distention and nausea improving with conservative management -Continues to have flatulence/soft stool as expected with resolving SBO -Stool pcr neg for infectious process of diarrhea which is most likely 2/2 resolving SBO -Electrolyte abnormalities being repleted by primary service -NGT dc today -Advance diet to full liquids today and if tolerates he is able to dc home tomorrow (2) Abnormal CT of the abdomen Current Visit: Yes Status: Acute -As above Subjective Narrative: Feeling better today. No abdominal pain, N/V postprandial yst. Having flatulence and diarrhea. Objective Vital Signs - Last 8 Hours Temp Pulse Resp BP Pulse Ox 12/17/18 07:34 95 12/17/18 04:27 98.9 F 85 12 117/69 95 12/17/18 00:09 98.7 F 87 14 133/79 94 Intake and Output 12/16/18 12/17/18 12/17/18 23:59 07:59 15:59 Other: Stool Size Moderate Stool Consistency liquid Stool Color Green # Voids 1 # Bowel Movements 1 - General physical appearance well developed, well nourished, no distress - Eyes normal ocular movement - ENT dry mucosa - Neck Neck exam: trachea midline - Respiratory normal expansion, normal respiratory effort, clear to auscultation - Cardiovascular Cardiovascular exam: Present: RRR. Absent: bradycardia, tachycardia, irregular rhythm, murmurs, clicks, rubs, gallop, distant heart sounds, JVD - Abdomen Abdomen: Present: bowel sounds present, soft, non tender, distended (mild). Absent: organomegaly, masses, guarding, rebound, rigid - Integumentary no rash - Neurologic CN 2-12 grossly intact, normal coordination - Psychiatric oriented to time, oriented to person, oriented to place, speech is normal - Labs 12/17/18 04:20 12/17/18 04:20 Diabetes panel 12/16/18 12/17/18 Range/Units 14:47 04:20 Sodium 133 L (136-145) mEq/L Potassium 3.5 D 3.6 (3.5-5.1) mEq/L Chloride 102 (98-107) mEq/L Carbon Dioxide 20 L (23-29) mEq/L BUN 31 H (8-23) mg/dL Creatinine 0.93 (0.70-1.30) mg/dL Glucose 104 (70-105) mg/dL Calcium 9.3 (8.6-10.3) mg/dL Calcium panel 12/17/18 Range/Units 04:20 Calcium 9.3 (8.6-10.3) mg/dL Pituitary panel 12/16/18 12/17/18 Range/Units 14:47 04:20 Sodium 133 L (136-145) mEq/L Potassium 3.5 D 3.6 (3.5-5.1) mEq/L Chloride 102 (98-107) mEq/L Carbon Dioxide 20 L (23-29) mEq/L BUN 31 H (8-23) mg/dL Creatinine 0.93 (0.70-1.30) mg/dL Glucose 104 (70-105) mg/dL Calcium 9.3 (8.6-10.3) mg/dL Adrenal panel 12/16/18 12/17/18 Range/Units 14:47 04:20 Sodium 133 L (136-145) mEq/L Potassium 3.5 D 3.6 (3.5-5.1) mEq/L Chloride 102 (98-107) mEq/L Carbon Dioxide 20 L (23-29) mEq/L BUN 31 H (8-23) mg/dL Creatinine 0.93 (0.70-1.30) mg/dL Glucose 104 (70-105) mg/dL Calcium 9.3 (8.6-10.3) mg/dL Consult Discharge Plan - Plan Referrals: NONE,PCP [Primary Care Provider] - <Miranda Mclaughlin - Last Filed: 12/17/18 08:11> Date of Encounter: 12/17/18 - Assessment and Plan (1) SBO (small bowel obstruction) Current Visit: Yes Status: Acute (2) Acute renal failure Current Visit: Yes Status: Acute Qualifiers: Acute renal failure type: unspecified Qualified Code(s): N17.9 - Acute kidney failure, unspecified (3) Hypertension Current Visit: Yes Status: Chronic Qualifiers: Hypertension type: essential hypertension Qualified Code(s): I10 - Essential (primary) hypertension Objective Vital Signs - Last 8 Hours Temp Pulse Resp BP Pulse Ox 12/17/18 07:34 95 12/17/18 04:27 98.9 F 85 12 117/69 95 Intake and Output 12/16/18 12/17/18 12/17/18 23:59 07:59 15:59 Other: Stool Size Moderate Stool Consistency liquid Stool Color Green # Voids 1 # Bowel Movements 1 - Labs 12/17/18 04:20 12/17/18 04:20 Diabetes panel 12/16/18 12/17/18 Range/Units 14:47 04:20 Sodium 133 L (136-145) mEq/L Potassium 3.5 D 3.6 (3.5-5.1) mEq/L Chloride 102 (98-107) mEq/L Carbon Dioxide 20 L (23-29) mEq/L BUN 31 H (8-23) mg/dL Creatinine 0.93 (0.70-1.30) mg/dL Glucose 104 (70-105) mg/dL Calcium 9.3 (8.6-10.3) mg/dL Calcium panel 12/17/18 Range/Units 04:20 Calcium 9.3 (8.6-10.3) mg/dL Pituitary panel 12/16/18 12/17/18 Range/Units 14:47 04:20 Sodium 133 L (136-145) mEq/L Potassium 3.5 D 3.6 (3.5-5.1) mEq/L Chloride 102 (98-107) mEq/L Carbon Dioxide 20 L (23-29) mEq/L BUN 31 H (8-23) mg/dL Creatinine 0.93 (0.70-1.30) mg/dL Glucose 104 (70-105) mg/dL Calcium 9.3 (8.6-10.3) mg/dL Adrenal panel 12/16/18 12/17/18 Range/Units 14:47 04:20 Sodium 133 L (136-145) mEq/L Potassium 3.5 D 3.6 (3.5-5.1) mEq/L Chloride 102 (98-107) mEq/L Carbon Dioxide 20 L (23-29) mEq/L BUN 31 H (8-23) mg/dL Creatinine 0.93 (0.70-1.30) mg/dL Glucose 104 (70-105) mg/dL Calcium 9.3 (8.6-10.3) mg/dL - Attending Attestation I examined this patient and my medical decision-making was reviewed with the Resident Physician. I agree with the documented findings, disposition and leonard atment plan as described except to the extent set forth below.
--- NOTE | 2018-12-17 11:13 | Internal Med Progress Note ---
<Gamaliel Beach - Last Filed: 12/17/18 15:35> Hospitalist Progress Note - Encounter Date of Encounter: 12/17/18 Time of Encounter: 10:00 - Subjective Interval History: Patient is up and walk around the room this morning. His NG tube has been removed. He reports he is having some diarrhea but this has decreased in freque ncy and intensity. He is tolerating his diet. He reports poor sleep still as well as sinus congestion. - Exam Vitals: Temp Pulse Resp BP Pulse Ox 97.6 F 90 15 123/69 95 12/17/18 10:13 12/17/18 10:13 12/17/18 10:13 12/17/18 10:13 12/17/18 10:13 Exam: General: pleasant, without distress Cardiovascualr: Regular rate and rhythm with no murmur, absent gallops or rubs, absent pedal edema, radial pulses 2 out of 4 Lungs: Clear to auscultation bilaterally, not in respiratory distress Abdomen: Soft nontender, distended, distant bowel sounds, absent peritoneal signs, absent guarding. Scar from previous abdominal surgery noted, intact. Skin: warm and dry, absent rash, absent open wounds and nodules MSK: absent clubbing, cyanosis, joints without swelling Neuro: Cranial nerves II through XII intact, UE and LE sensation equal bilaterally, UE and LEstrength 5/5, alert oriented 3, Psych: good insight and judgment - Assessment and Plan (1) SBO (small bowel obstruction) Current Visit: Yes Status: Resolved Assessment and Plan: Resolved Discontinue IV fluids Full liquid diet Zofran as needed for nausea. Patient can advance diet as tolerated and likely discharge tomorrow. (2) Acute renal failure Current Visit: Yes Status: Resolved Assessment and Plan: Resolved Prerenal Discontinue IV fluids. (3) Gout Current Visit: Yes Status: Chronic Assessment and Plan: Continue allopurinol. (4) Hyperlipidemia Current Visit: Yes Status: Chronic Assessment and Plan: Continue gemfibrozil. (5) Hypertension Current Visit: Yes Status: Chronic Assessment and Plan: Continue lisinopril, metoprolol (6) Hypothyroid Current Visit: Yes Status: Chronic Assessment and Plan: Continue levothyroxine (7) GERD (gastroesophageal reflux disease) Current Visit: Yes Status: Chronic Assessment and Plan: Continue omeprazole. (8) DVT prophylaxis Current Visit: Yes Status: Acute Assessment and Plan: Heparin subcutaneous (9) Diarrhea Current Visit: Yes Status: Acute (10) Hypokalemia Current Visit: Yes Status: Acute - Time Spent with Patient Total time spent is greater than 50% in coordination of care (as documented) at patient's floor/unit and/or counseling patient: Internal Medicine: Result - Labs CBC & Chem 7: 12/17/18 04:20 12/17/18 04:20 Labs: Short CBC 12/17/18 Range/Units 04:20 WBC 8.2 (4.3-11.1) K/mcL Hgb 11.8 L (12.9-16.9) g/dL Hct 34.1 L (37.5-50.1) % Plt Count 255 (140-400) K/mcL BMP 12/16/18 12/17/18 14:47 04:20 Sodium 133 L Potassium 3.5 D 3.6 Chloride 102 Carbon Dioxide 20 L BUN 31 H Creatinine 0.93 Glucose 104 Calcium 9.3 - Impressions Impressions Retroperitoneum Ultrasound 12/16/18 17:00 IMPRESSION: Unremarkable ultrasound of the kidneys and urinary bladder. Prostatomegaly. D/ / Jose Ramirez MD / Jose Ramirez MD Interpreting Provider: Jose Ramirez MD Consult Discharge Plan - Plan Referrals: NONE,PCP [Primary Care Provider] - <Michael Luevano - Last Filed: 12/17/18 15:57> Hospitalist Progress Note - Encounter Date of Encounter: 12/17/18 - Exam Vitals: Temp Pulse Resp BP Pulse Ox 97.6 F 81 16 129/71 96 12/17/18 15:08 12/17/18 15:08 12/17/18 15:08 12/17/18 15:08 12/17/18 15:08 - Assessment and Plan (1) SBO (small bowel obstruction) Current Visit: Yes Status: Resolved (2) Abnormal CT of the abdomen Current Visit: Yes Status: Acute - Time Spent with Patient Total time spent is greater than 50% in coordination of care (as documented) at patient's floor/unit and/or counseling patient: Internal Medicine: Result - Labs CBC & Chem 7: 12/17/18 04:20 12/17/18 04:20 Labs: Short CBC 12/17/18 Range/Units 04:20 WBC 8.2 (4.3-11.1) K/mcL Hgb 11.8 L (12.9-16.9) g/dL Hct 34.1 L (37.5-50.1) % Plt Count 255 (140-400) K/mcL BMP 12/17/18 04:20 Sodium 133 L Potassium 3.6 Chloride 102 Carbon Dioxide 20 L BUN 31 H Creatinine 0.93 Glucose 104 Calcium 9.3 - Impressions Impressions Retroperitoneum Ultrasound 12/16/18 17:00 IMPRESSION: Unremarkable ultrasound of the kidneys and urinary bladder. Prostatomegaly. D/ / Jose Ramirez MD / Jose Ramirez MD Interpreting Provider: Jose Ramirez MD - Attending Attestation I have seen and independently assessed this patient and I agree with plan as documented above Plan Acute small bowel obstruction. Advanced diet to full liquid today. Likely discharge in am if he continues to tolerate diet Acute renal failure likely prerenal. IV fluids. Nephrology consult. Creatinine improving Diarrhea. Stool studies unremarkable <Gamaliel Beach - Last Filed: 12/17/18 15:35> (2) Acute renal failure Qualifiers: Acute renal failure type: unspecified Qualified Code(s): N17.9 - Acute kidney failure, unspecified (3) Gout Qualifiers: Gout site: unspecified site Gout etiology: unspecified cause Chronicity: unspecified Qualified Code(s): M10.9 - Gout, unspecified (4) Hyperlipidemia Qualifiers: Hyperlipidemia type: pure hypercholesterolemia Qualified Code(s): E78.00 - Pure hypercholesterolemia, unspecified; E78.0 - Pure hypercholesterolemia (5) Hypertension Qualifiers: Hypertension type: essential hypertension Qualified Code(s): I10 - Essential (primary) hypertension (6) Hypothyroid Qualifiers: Hypothyroidism type: acquired Qualified Code(s): E03.9 - Hypothyroidism, uns pecified (7) GERD (gastroesophageal reflux disease) Qualifiers: Esophagitis presence: esophagitis presence not specified Qualified Code(s): K21.9 - Gastro-esophageal reflux disease without esophagitis (9) Diarrhea Qualifiers: Diarrhea type: unspecified type Qualified Code(s): R19.7 - Diarrhea, unspecified
[2018-12-17] MEDS: GuaiFENesin Liq 200 MG/10 ML UDC PO PRN ×2 (13:29→19:48)
[2018-12-17] MEDS ORDERED: Metoprolol XL (24 HR) Succ 25 MG TAB.ER.24H PO SCH (15:15)
[2018-12-17] MEDS: Metoprolol XL (24 HR) Succ 25 MG TAB.ER.24H PO SCH (19:48)
[2018-12-18] MEDS: GuaiFENesin Liq 200 MG/10 ML UDC PO PRN ×3 (01:59→18:32)
[2018-12-18] MEDS: Metoprolol XL (24 HR) Succ 25 MG TAB.ER.24H PO SCH ×2 (03:48→12:24)
[2018-12-18] MEDS: *HR* Heparin 5,000 UNIT/ML VIAL SQ SCH ×2 (05:43→16:22)
[2018-12-18 06:40] LABS: BUN/Creatinine Ratio 19 (6-26); Blood Urea Nitrogen 14 mg/dL (8-23); Calcium 9.4 mg/dL (8.6-10.3); Carbon Dioxide 21 mEq/L (23-29); Chloride 103 mEq/L (98-107); Glucose 90 mg/dL (70-105); Magnesium 1.5 mg/dL (1.6-2.6); Osmolality,Calculated 280 (280-300); Potassium 3.6 mEq/L (3.5-5.1); Sodium 135 mEq/L (136-145); eGFR For Non-African Americans > 60 (> 60)
--- NOTE | 2018-12-18 08:27 | AcuteCareSurgery Progress Note ---
Date of Encounter: 12/18/18 Time of Encounter: 07:00 - Assessment and Plan (1) SBO (small bowel obstruction) Current Visit: Yes Status: Resolved SBO has resolved. Advance diet to full liquid then to regular as tolerated. Increase activity. Surgery signing-off. Please, reconsult prn if pt condition has changed. (2) Acute renal failure Current Visit: Yes Status: Resolved Qualifiers: Acute renal failure type: unspecified Qualified Code(s): N17.9 - Acute kidney failure, unspecified (3) Hypertension Current Visit: Yes Status: Chronic Qualifiers: Hypertension type: essential hypertension Qualified Code(s): I10 - Essential (primary) hypertension Subjective Patient reports: no new complaints, feels better, pain is less (pain is resolved), tolerating liquids well, flatus, bowel movement Objective Vital Signs - Last 8 Hours Temp Pulse Resp BP Pulse Ox 12/18/18 06:42 98.3 F 74 15 111/65 95 12/18/18 03:32 98.3 F 74 16 116/67 95 Intake and Output 12/17/18 12/18/18 12/18/18 23:59 07:59 15:59 Intake Total 100 / 100 100 / 100 Output Total 0 / 0 0 / 0 Balance 100 / 100 100 / 100 Intake: Oral 100 / 100 100 / 100 Output: Urine 0 / 0 0 / 0 Other: Meal Dinner Percent of Meal Consumed 0% Weight 71.4 kg Patient Weight 12/18/18 23:59 Weight 71.4 kg - General physical appearance no distress - Eyes PERRL - ENT no congestion - Respiratory clear to auscultation - Cardiovascular Cardiovascular exam: Present: RRR - Abdomen Abdomen: Present: bowel sounds present, soft, non tender - Neurologic CN 2-12 grossly intact - Musculoskeletal normal posture - Psychiatric oriented to time, oriented to person, oriented to place - Labs 12/17/18 04:20 12/18/18 05:16 Diabetes panel 12/18/18 Range/Units 05:16 Sodium 135 L (136-145) mEq/L Potassium 3.6 (3.5-5.1) mEq/L Chloride 103 (98-107) mEq/L Carbon Dioxide 21 L (23-29) mEq/L BUN 14 (8-23) mg/dL Creatinine 0.75 (0.70-1.30) mg/dL Glucose 90 (70-105) mg/dL Calcium 9.4 (8.6-10.3) mg/dL Calcium panel 12/18/18 Range/Units 05:16 Calcium 9.4 (8.6-10.3) mg/dL Pituitary panel 12/18/18 Range/Units 05:16 Sodium 135 L (136-145) mEq/L Potassium 3.6 (3.5-5.1) mEq/L Chloride 103 (98-107) mEq/L Carbon Dioxide 21 L (23-29) mEq/L BUN 14 (8-23) mg/dL Creatinine 0.75 (0.70-1.30) mg/dL Glucose 90 (70-105) mg/dL Calcium 9.4 (8.6-10.3) mg/dL Adrenal panel 12/18/18 Range/Units 05:16 Sodium 135 L (136-145) mEq/L Potassium 3.6 (3.5-5.1) mEq/L Chloride 103 (98-107) mEq/L Carbon Dioxide 21 L (23-29) mEq/L BUN 14 (8-23) mg/dL Creatinine 0.75 (0.70-1.30) mg/dL Glucose 90 (70-105) mg/dL Calcium 9.4 (8.6-10.3) mg/dL Consult Discharge Plan - Plan Additional Instructions: F/U with PCP. F/U with [facility] only as needed. Referrals: NONE,PCP [Primary Care Provider] -
[2018-12-18] MEDS ORDERED: Aspirin Enteric Coated 81 MG Tablet PO SCH (09:00)
[2018-12-18] MEDS ORDERED: Finasteride 5 MG TABLET PO SCH (09:00)
[2018-12-18 16:42] VITALS: BP 108/64
--- NOTE | 2018-12-18 17:51 | Internal Med Progress Note ---
Hospitalist Progress Note - Encounter Date of Encounter: 12/18/18 Time of Encounter: 17:49 - Exam Vitals: Temp Pulse Resp BP Pulse Ox 98.7 F 73 16 108/64 97 12/18/18 16:41 12/18/18 16:41 12/18/18 16:41 12/18/18 16:41 12/18/18 16:41 - Assessment and Plan (1) SBO (small bowel obstruction) Current Visit: Yes Status: Resolved (2) Abnormal CT of the abdomen Current Visit: Yes Status: Acute - Time Spent with Patient Total time spent is greater than 50% in coordination of care (as documented) at patient's floor/unit and/or counseling patient: less than 15 minutes Plan of Care Discussed with: patient Internal Medicine: Result - Labs CBC & Chem 7: 12/17/18 04:20 12/18/18 05:16 Labs: BMP 12/18/18 05:16 Sodium 135 L Potassium 3.6 Chloride 103 Carbon Dioxide 21 L BUN 14 Creatinine 0.75 Glucose 90 Calcium 9.4 Consult Discharge Plan - Plan Additional Instructions: F/U with PCP. F/U with [facility] only as needed. Referrals: NONE,PCP [Primary Care Provider] -
--- NOTE | 2018-12-18 17:58 | Discharge Summary ---
- NOTES TO OUTPATIENT PROVIDER Notes to Outpatient Provider: PCP in 5 to 7 days Date of Encounter: 12/18/18 Time of Encounter: 17:54 - Discharge Diagnosis (1) SBO (small bowel obstruction) Priority: Primary Status: Resolved Assessment and Plan: Resolved. Pt seen and managed by surgery. Pt tolerated advanced. States he had large loose stool one time in am and passing flatus. He denies N/V or abdominal pain. (2) Abnormal CT of the abdomen Priority: Secondary Status: Acute Assessment and Plan: Patient CT abdomen pelvis showed debris in the left lower lobe airways which could represent mucous plugging in the setting of bronchitis or aspiration. Currently patient is not short of breath or requiring supplemental oxygen and shows no signs of infection. Chest x ray XR/XR chest 1V portable IMPRESSION: No acute findings (3) ANGELO (acute kidney injury) Priority: Secondary Status: Acute Assessment and Plan: Resolved with IVF. (4) GERD (gastroesophageal reflux disease) Priority: Secondary Status: Chronic Assessment and Plan: Continue on PPI at home Qualifiers: Esophagitis presence: esophagitis presence not specified Qualified Code(s): K21.9 - Gastro-esophageal reflux disease without esophagitis (5) Hyperlipidemia Priority: Secondary Status: Chronic Assessment and Plan: Lopid 600 mg PO TID Qualifiers: Hyperlipidemia type: pure hypercholesterolemia Qualified Code(s): E78.00 - Pure hypercholesterolemia, unspecified; E78.0 - Pure hypercholesterolemia (6) Hypertension Priority: Secondary Status: Chronic Assessment and Plan: Metoprolol Qualifiers: Hypertension type: essential hypertension Qualified Code(s): I10 - Essential (primary) hypertension (7) Hypothyroid Priority: Secondary Status: Chronic Assessment and Plan: synthroid Qualifiers: Hypothyroidism type: acquired Qualified Code(s): E03.9 - Hypothyroidism, unspecified Hospital course: History of present illness: Dr. Beach Mr. Chawla is a 82 year old male with past medical history of PVCs, hypertension, gout, prostate enlargement, bowel obstruction presents with chief complaint of abdominal pain/nausea/vomiting 3 days. Patient is from [place] visiting her friend. He noticed abdominal distention starting Sunday the continue worsen and he developed generalized abdominal pain. Furthermore today patient had diarrhea and vomiting multiple times. He denied having any blood in the stool or vomit. 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 Since his surgery patient has had 3 bowel obstructions in June, July and August 2018. He states these usually require NG tube and bowel rest. He has not required surgery for bowel obstruction. He reports decreased appetite, oral intake as well as decreased urine production. Discharge discussed with: patient - Time Spent with Patient Total time spent providing and/or coordinating discharge services: Time spent: Greater than 30 minutes - Discharge Medications Prescriptions: No Action Esomeprazole Magnesium [Nexium] 40 mg PO BID Lipase/Protease/Amylase [Viokace 20,880-78,300 Units Tb] 3 each PO TIDWM Metoprolol Succinate [Toprol Xl] 25 mg PO Q8H Lisinopril [Zestril] 5 mg PO DAILY Gemfibrozil [Lopid] 600 mg PO TID Tamsulosin [Flomax] 0.4 mg PO DAILY Finasteride [Proscar] 5 mg PO DAILY Allopurinol [Zyloprim] 300 mg PO DAILY Levothyroxine [Synthroid] 88 mcg PO 0630 Aspirin [Lo-Dose Aspirin EC] 81 mg PO DAILY Home Medications: Allopurinol [Zyloprim] 300 mg PO DAILY 12/14/18 [History] Aspirin [Lo-Dose Aspirin EC] 81 mg PO DAILY 12/14/18 [History] Esomeprazole Magnesium [Nexium] 40 mg PO BID 12/14/18 [History] Finasteride [Proscar] 5 mg PO DAILY 12/14/18 [History] Gemfibrozil [Lopid] 600 mg PO TID 12/14/18 [History] Levothyroxine [Synthroid] 88 mcg PO 0630 12/14/18 [History] Lipase/Protease/Amylase [Viokace 20,880-78,300 Units Tb] 3 each PO TIDWM 12/14/18 [History] Lisinopril [Zestril] 5 mg PO DAILY 12/14/18 [History] Metoprolol Succinate [Toprol Xl] 25 mg PO Q8H 12/14/18 [History] Tamsulosin [Flomax] 0.4 mg PO DAILY 12/14/18 [History] Allergies/Adverse Reactions: Allergy/AdvReac Type Severity Reaction Status Date / Time levofloxacin AdvReac Hives Verified 12/14/18 13:09 Date of admission: 12/14/18 18:05 Primary care physician: PCP NONE Consults: 12/14/18 16:57 Consult to Nephrology [CONS] Stat Consulting Provider: Kidney Lindsay/ORIMI/PARSandra/BROWN Reason for Consult: ARF, elevated creat. Normal K Call Completed: No Consult to Surgery [CONS] Stat Consulting Provider: Surgery [facility] Reason for Consult: SBO with transition point Time Notified: 16:58 Call Completed: Yes Discharging clinician: Sarah Vargas Anticipated date of discharge: 12/18/18 - Constitutional Vitals: Temp Pulse Resp BP Pulse Ox 98.7 F 73 16 108/64 97 12/18/18 16:41 12/18/18 16:41 12/18/18 16:41 12/18/18 16:41 12/18/18 16:41 Exam: General: A + O x 3, NAD Cardiovascualr: Regular rate and rhythm with no murmur, absent gallops or rubs, absent pedal edema, radial pulses 2 out of 4 Lungs: Clear to auscultation bilaterally, not in respiratory distress Abdomen: Soft non-tender, non-distended, normal bowel sounds, absent peritoneal signs, absent guarding. Scar from previous abdominal surgery noted, intact. Skin: warm and dry, absent rash, absent open wounds and nodules MSK: absent clubbing, cyanosis, joints without swelling Neuro: Cranial nerves II through XII intact, UE and LE sensation equal bilaterally, UE and LEstrength 5/5, alert oriented 3, Psych: good insight and judgment - Patient Status Disposition: Home, Self-Care Condition: Fair Overall status at discharge: patient is back to baseline - Discharge Instructions Follow Up With: NONE,PCP [Primary Care Provider] - Additional Instructions: F/U with PCP. F/U with [facility] only as needed. - Diet and Activity Activity: increase activity as tolerated Diet: advance to your usual diet
== END 2018-12-18 20:00 | disposition home or self-care (01) | DRG 389 ==
LOC: EMEROOARM 13:01 → 3ANU 18:05
PROVIDERS: ADMIT Internal Medicine; ATTEND Internal Medicine